=== PATIENT | male | born 2000 | race Caucasian/White ===

== ENCOUNTER 2022-02-08 07:55 | Emergency (ER) | payer MEDICAID, SELFPAY ==
[2022-02-08 08:19] VITALS: BP 147/84; PULSE 79; RESP 17; TEMP 36.9; O2SAT 99
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
[2022-02-08 09:11] VITALS: BP 153/75; PULSE 76; RESP 18; TEMP 36.8; O2SAT 100; BMI 35.6
[2022-02-08 09:49] LABS: MANUAL DIFF FLAG NO
[2022-02-08 10:05] LABS: Basophils Percent Auto 0.2 % (0-2); Eosinophils Percent Auto 0.3 % (0-4); Hemoglobin 15.1 g/dl (14.0-18.0); Imm Gran Abs Auto 0.03 X10*3/uL (0.00-0.03); Imm Gran Pct Auto 0.3 % (0.0-0.4); Lymphocytes Absolute Auto 1.8 X10*3/uL (1.2-4.9); Lymphocytes Percent Auto 18.2 % (20-40); Mean Corpuscular HGB Conc 32.8 g/dl (31.0-36.0); Mean Corpuscular Volume 88.3 fL (80.0-98.0); Mean Platelet Volume 9.5 fL (9.4-12.4); Monocytes Absolute Auto 0.7 X10*3/uL (0.1-1.2); Monocytes Percent Auto 7.2 % (2-11); Neutrophils Absolute Auto 7.2 x10*3/uL (2.0-8.3); Neutrophils Percent Auto 73.8 % (45-73); Platelet Count 318 X10*3/uL (160-400); Red Blood Count 5.21 X10*6/uL (4.60-5.80); Red Cell Distribution Width 11.9 % (11.0-16.0); White Blood Count 9.8 X10*3/uL (4.8-10.8)
[2022-02-08] MEDS: Ondansetron ODT 4 MG TAB.RAPDIS TRANSLINGU (10:18)
[2022-02-08] MEDS: Cyclobenzaprine HCl 10 MG TABLET PO (10:19)
[2022-02-08] MEDS: Ketorolac Tromethamine 15 MG/ML VIAL IM (10:19)
[2022-02-08 10:20] LABS: Alanine Aminotransferase 24 U/L (0-40); Albumin Level 4.6 g/dL (3.5-5.0); Alkaline Phosphatase 49 U/L (39-117); Anion Gap 14 (12-20); Aspartate Amino Transferase 19 U/L (5-37); Bilirubin Total 0.7 mg/dL (0.0-1.0); Blood Urea Nitrogen 10 mg/dL (9-16); Calcium 9.9 mg/dL (8.4-10.2); Carbon Dioxide 26 mmol/L (22-29); Chloride 103 mmol/L (96-108); Creatinine Clr Calc Pharmacy 155.1; Estimated Glomerular Filt Rate > 60; Glucose Random 107 mg/dL (60-115); Potassium 4.6 mmol/L (3.3-5.1); Sodium 138 mmol/L (135-145); Total Protein 7.1 g/dL (6.5-8.0)
== END 2022-02-08 10:52 | disposition home or self-care (01) ==
PROVIDERS: Physician Assistant Medical; Emergency Provider Emergency Medicine
DX: S06.0X9A Concussion with loss of consciousness of unspecified duration, initial encounter (principal); S13.4XXA Sprain of ligaments of cervical spine, initial encounter; V47.5XXA Car driver injured in collision with fixed or stationary object in traffic accident, initial encounter; Y93.9 Activity, unspecified; Y92.410 Unspecified street and highway as the place of occurrence of the external cause; Y99.9 Unspecified external cause status
CPT/HCPCS: 36415; 80053; 83735; 85025; 96372; 99283; 99284; J1885

== ENCOUNTER 2022-03-11 22:20 | Emergency (ER) | payer MEDICAID, SELFPAY ==
[2022-03-11 22:34] VITALS: BP 103/79; PULSE 104; RESP 18; TEMP 37; O2SAT 97; BMI 34.1
[2022-03-11 22:50] LABS: MANUAL DIFF FLAG NO
[2022-03-11 22:52] LABS: Basophils Percent Auto 0.4 % (0-2); Eosinophils Percent Auto 0.4 % (0-4); Hematocrit 44.6 % (42.0-52.0); Hemoglobin 14.7 g/dl (14.0-18.0); Imm Gran Abs Auto 0.04 X10*3/uL (0.00-0.03); Imm Gran Pct Auto 0.4 % (0.0-0.4); Lymphocytes Absolute Auto 1.6 X10*3/uL (1.2-4.9); Lymphocytes Percent Auto 16.2 % (20-40); Mean Corpuscular Hemoglobin 28.2 pg (27.0-33.0); Mean Corpuscular Volume 85.6 fL (80.0-98.0); Mean Platelet Volume 9.3 fL (9.4-12.4); Monocytes Absolute Auto 1.1 X10*3/uL (0.1-1.2); Monocytes Percent Auto 11.6 % (2-11); Platelet Count 311 X10*3/uL (160-400); Red Blood Count 5.21 X10*6/uL (4.60-5.80); Red Cell Distribution Width 12.1 % (11.0-16.0); White Blood Count 9.8 X10*3/uL (4.8-10.8)
[2022-03-11 23:02] LABS: Strep A Nucleic Acid Negative (Negative)
[2022-03-11 23:11] LABS: Alanine Aminotransferase 32 U/L (0-40); Albumin Level 4.5 g/dL (3.5-5.0); Alkaline Phosphatase 56 U/L (39-117); Anion Gap 13 (12-20); Aspartate Amino Transferase 24 U/L (5-37); Bilirubin Total 0.6 mg/dL (0.0-1.0); Blood Urea Nitrogen 9 mg/dL (9-16); Calcium 9.4 mg/dL (8.4-10.2); Carbon Dioxide 27 mmol/L (22-29); Chloride 103 mmol/L (96-108); Creatinine Clr Calc Pharmacy 136.8; Estimated Glomerular Filt Rate > 60; Glucose Random 109 mg/dL (60-115); Potassium 3.6 mmol/L (3.3-5.1); Sodium 139 mmol/L (135-145); Total Protein 6.8 g/dL (6.5-8.0)
[2022-03-11 23:23] LABS: COVID-19 Test Negative (Negative); IDNOW Serial# 55D5AD1C; Influenza A Negative (Negative); Influenza B2 Negative (Negative)
--- NOTE | 2022-03-11 23:45 | ED_ITS ---
HPI - General Adult General Chief complaint: General Medical Stated complaint: Allergic Reaction Time Seen by Provider: 03/11/22 22:55 Source: patient Mode of arrival: ambulatory Limitations: no limitations History of Present Illness HPI narrative: 21-year-old male with Crohn's disease recently started on Humira and took 1 dose presenting to the ED with complaints of sleeping all day and having hot flashes after he took the Humira. He reports he also had a mass removed from his right posterior buttocks which is not hurting him although he reported he wanted me just to know. He also reported that he has also had a sore throat for the past few days worse today and he was recently around his friends who tested positive for COVID approximately 3-4 days ago. He denies any measured fevers, dizziness, headaches, neck pain/stiffness, trouble swallowing or breathing, chest pain or shortness of breath, nausea/vomiting, paresthesias, palpitations, abdominal pain, diarrhea, constipation, black or bloody stools, hematuria, dysuria, recent travel, cough, trouble swallowing, rashes or any other symptoms complaints or concerns at this time. MD complaint: Sore throat and possible adverse reaction to Humira Related Data Previous Rx's Medication Instructions Recorded cyclobenzaprine 10 mg tablet 10 mg PO TID PRN muscle spasm 7 02/08/22 days #21 tabs ondansetron 4 mg disintegrating 4 mg PO Q8H 3 days #9 tabs 02/08/22 tablet amoxicillin 875 mg-potassium 1 tab PO BID 10 days #20 tabs 03/11/22 clavulanate 125 mg tablet Allergies Allergy/AdvReac Type Severity Reaction Status Date / Time Sulfa (Sulfonamide Allergy Unknown Verified 02/08/22 09:16 Antibiotics) tree nut Allergy Hives Verified 03/11/22 22:34 Review of Systems Review of Systems: Constitutional : + feeling tired all day and hot flashes, No Weight loss, No Fever, No Chills, No Night Sweats ENT/Mouth : + sore throat, No Hearing loss, No Ear Pain, No Nasal Congestion, No Sinus Pain, No Hoarseness, No Rhinorrhea, No Swallowing Difficulty Eyes: No Eye Pain, No Swelling, No Redness, No Foreign Body, No Discharge, No Vision Changes Cardiovascular : No Chest Pain, No SOB, No Dyspnea on Exertion, No Orthopnea, No Edema, No Palpitations Respiratory : No Cough, No Sputum, No Wheezing, No Smoke Exposure, No Dyspnea Gastrointestinal : No Nausea, No Vomiting, No Diarrhea, No Constipation, No abdominal Pain, No Hematochezia, No Melena Genitourinary : no irregular bleeding, No Dysuria, No Urinary Frequency, No Hem aturia, No Urinary Incontinence, No Urgency, No Flank Pain, No Urinary Flow Changes, No Hesitancy Musculoskeletal : No joint pain, No Myalgias, No Joint Swelling Skin : No Skin Lesions, No rash Neuro : No Weakness, No Numbness, No Paresthesias, No Loss of Consciousness, No Dizziness, No Headache Psych : No Anxiety/Panic, No Depression, No SI/HI/AH/VH, No Social Issues, Heme/Lymph: No Bruising, No Bleeding,No Lymphadenopathy Endocrine : No Polyuria, No Polydipsia, No Temperature Intolerance Yes all other systems are reviewed and are negative [facility] Past Medical History Attestation statement: The following information was validated with the patient. Source: old records reviewed and nursing notes reviewed Social History Social History Advance Directives: No Physical Exam ED Vital Signs: Vital Signs - 24 hr 03/11/22 22:34 Temperature 98.6 F Pulse Rate 104 H Respiratory Rate 18 Blood Pressure 103/79 Pulse Oximetry 97 Oxygen Delivery Method Room Air BMI result Body Mass Index 34.1 vital signs have been reviewed as normal and appeared to be correct. Blood pr essure normal. Heart rate 104. Respiration rate normal. Temperature normal. Oxygen saturation normal. Appearance: Alert. Oriented X3. No acute distress. Head: Normal external exam. Normocephalic. Atraumatic. Eyes: PERRLA. EOMI. Conjunctiva and sclera normal. Eyelids normal. ENT: EAC normal. TM's Normal. Posterior pharynx mildly erythematous with scattered exudate noted. Uvula midline. Soft and hard palate within normal limits. Moist mucous membranes. No lesions/ulcerations or masses noted on the tongue. Normal voice. No trismus noted. No drooling noted. No muffled voice noted. Neck: Normal inspection. Neck supple. FROM. No adenopathy. Thyroid Normal. No tracheal deviation noted. No crepitus is noted. No meningeal signs. No neck mass noted. No signs of trauma noted. CVS: Normal heart rate and rhythm. Heart sound normal. Pulses normal throughout. No murmurs/rales/gallops. Respiratory: No respiratory distress. Painless inspiration. Breath sounds normal. No wheezes/rales/rhonchi noted. Chest nontender. No crepitus is noted. No signs of trauma noted. No accessory muscle usage noted or decreased air movement noted. Abdomen: Soft and nontender. Bowel sounds normal in all 4 quadrants. No distention noted. No organomegaly noted. No visible injury noted. Back: No CVA tenderness. Full range of motion noted. Nontender. No signs of trauma. Patient neuro intact bilaterally and distally on all 4 extremities. Patient's reflexes intact bilaterally and distally on all 4 extremities. No rashes/lesion/induration/fluctuance or signs of infection noted. Skin: Skin warm and dry. Normal skin color. Normal skin turgor. No rashes/lesions/lacerations noted. Extremities: Extremities exhibit normal range of motion and nontender. Neuro: Oriented X 3. No motor deficit. No sensory deficit. Reflexes normal. Normal steady gait. No focal neuro deficits noted. CN's II-XII intact bilaterally? Vascular: + radial pulses/+ 2 distal pedal pulses/+2 dorsalis pedis b/l. Normal cap refill. No cyanosis noted to upper extremity nails and lower extremity toes nails. Course Course Course Narrative: 21-year-old male with Crohn's disease recently started on Humira and took 1 dose presenting to the ED with complaints of sleeping all day and having hot flashes after he took the Humira. He reports he also had a mass removed from his right posterior buttocks which is not hurting him although he reported he wanted me just to know. He also reported that he has also had a sore throat for the past few days worse today and he was recently around his friends who tested positive for COVID approximately 3-4 days ago. Patient had labs while he was in the waiting room and all labs are within normal limits. Patient negative for COVID and influenza and strep although on my exam it appears that he has bacterial pharyngitis therefore will treat. Otherwise he might be having an adverse reaction to the Humira although explained to him that Humira works really well with Crohn's disease and he I would talk to the filer and sander before discontinuing this. Therefore patient understands agrees with this plan along with instructions return if any new or worsening symptoms. Medical Decision Making Medical Records Medical records reviewed: Yes I reviewed the patient's medical records. Lab Data Lab results reviewed: Yes I reviewed the patient's lab results. Result diagrams: 03/11/22 22:41 03/11/22 22:41 Labs: Lab Results 03/11/22 03/11/22 03/11/22 Range/Units 22:41 22:41 22:41 WBC 9.8 (4.8-10.8) X10*3/uL RBC 5.21 (4.60-5.80) X10*6/uL Hgb 14.7 (14.0-18.0) g/dl Hct 44.6 (42.0-52.0) % MCV 85.6 (80.0-98.0) fL MCH 28.2 (27.0-33.0) pg MCHC 33.0 (31.0-36.0) g/dl RDW 12.1 (11.0-16.0) % Plt Count 311 (160-400) X10*3/uL MPV 9.3 L (9.4-12.4) fL Immature Gran % (Auto) 0.4 (0.0-0.4) % Neut % (Auto) 71.0 (45-73) % Lymph % (Auto) 16.2 L (20-40) % [place] % (Auto) 11.6 H (2-11) % Eos % (Auto) 0.4 (0-4) % Baso % (Auto) 0.4 (0-2) % Lymph # (Auto) 1.6 (1.2-4.9) X10*3/uL [place] # (Auto) 1.1 (0.1-1.2) X10*3/uL Eos # (Auto) 0.0 (0.0-0.4) X10*3/uL Baso # (Auto) 0.0 (0.0-0.2) X10*3/uL Abs Immat Gran (auto) 0.04 H (0.00-0.03) X10*3/uL Absolute Neuts (auto) 7.0 (2.0-8.3) x10*3/uL Absolute Nucleated RBC 0.000 (0.0-0.012) X10*3/uL Nucleated RBC % (auto) 0.0 (0.0-0.2) /100WBC Sodium 139 (135-145) mmol/L Potassium 3.6 D (3.3-5.1) mmol/L Chloride 103 (96-108) mmol/L Carbon Dioxide 27 (22-29) mmol/L Anion Gap 13 (12-20) BUN 9 (9-16) mg/dL Creatinine 0.91 (0.5-1.4) mg/dL Estim Creat Clear Calc 136.8 Estimated GFR > 60 Random Glucose 109 (60-115) mg/dL Calcium 9.4 (8.4-10.2) mg/dL Total Bilirubin 0.6 (0.0-1.0) mg/dL AST 24 (5-37) U/L ALT 32 (0-40) U/L Alkaline Phosphatase 56 (39-117) U/L Total Protein 6.8 (6.5-8.0) g/dL Albumin 4.5 (3.5-5.0) g/dL COVID-19 (ANA) (Negative) COVID-19 Clin Com Influenza Type A (KAREN) Negative (Negative) Influenza Type B (KAREN) Negative (Negative) Influenza A & B Note See Note S. pyogenes GrpA KAREN (Negative) 03/11/22 03/11/22 Range/Units 22:41 22:43 WBC (4.8-10.8) X10*3/uL RBC (4.60-5.80) X10*6/uL Hgb (14.0-18.0) g/dl Hct (42.0-52.0) % MCV (80.0-98.0) fL MCH (27.0-33.0) pg MCHC (31.0-36.0) g/dl RDW (11.0-16.0) % Plt Count (160-400) X10*3/uL MPV (9.4-12.4) fL Immature Gran % (Auto) (0.0-0.4) % Neut % (Auto) (45-73) % Lymph % (Auto) (20-40) % [place] % (Auto) (2-11) % Eos % (Auto) (0-4) % Baso % (Auto) (0-2) % Lymph # (Auto) (1.2-4.9) X10*3/uL [place] # (Auto) (0.1-1.2) X10*3/uL Eos # (Auto) (0.0-0.4) X10*3/uL Baso # (Auto) (0.0-0.2) X10*3/uL Abs Immat Gran (auto) (0.00-0.03) X10*3/uL Absolute Neuts (auto) (2.0-8.3) x10*3/uL Absolute Nucleated RBC (0.0-0.012) X10*3/uL Nucleated RBC % (auto) (0.0-0.2) /100WBC Sodium (135-145) mmol/L Potassium (3.3-5.1) mmol/L Chloride (96-108) mmol/L Carbon Dioxide (22-29) mmol/L Anion Gap (12-20) BUN (9-16) mg/dL Creatinine (0.5-1.4) mg/dL Estim Creat Clear Calc Estimated GFR Random Glucose (60-115) mg/dL Calcium (8.4-10.2) mg/dL Total Bilirubin (0.0-1.0) mg/dL AST (5-37) U/L ALT (0-40) U/L Alkaline Phosphatase (39-117) U/L Total Protein (6.5-8.0) g/dL Albumin (3.5-5.0) g/dL COVID-19 (ANA) Negative (Negative) COVID-19 Clin Com See Note Influenza Type A (KAREN) (Negative) Influenza Type B (KAREN) (Negative) Influenza A & B Note S. pyogenes GrpA KAREN Negative (Negative) Discharge Plan Discharge Clinical Impression: Adverse effects of medication, Acute bacterial pharyngitis Patient Disposition: Home, Self-Care Instructions: Pharyngitis (ED) Prescriptions: New amoxicillin-pot clavulanate 875-125 mg tablet 1 tab PO BID 10 Days Qty: 20 0RF No Action cyclobenzaprine 10 mg tablet 10 mg PO TID PRN (Reason: muscle spasm) 7 Days Qty: 21 0RF ondansetron 4 mg tablet,disintegrating 4 mg PO Q8H 3 Days Qty: 9 0RF Referrals: Kelly Bradley MD [Primary Care Provider] - 2 days
== END 2022-03-12 00:13 | disposition home or self-care (01) ==
PROVIDERS: Emergency Provider Internal Medicine; PCP Family Medicine
DX: G47.19 Other hypersomnia (principal); R23.2 Flushing; T39.4X5A Adverse effect of antirheumatics, not elsewhere classified, initial encounter; Y92.039 Unspecified place in apartment as the place of occurrence of the external cause; J02.8 Acute pharyngitis due to other specified organisms; Z20.822 Contact with and (suspected) exposure to COVID-19
CPT/HCPCS: 36415; 80053; 85025; 87502; 87635; 87651; 99282; 99283

== ENCOUNTER 2023-08-19 23:36 | Inpatient (IN) | payer OTHER, SELFPAY ==
--- OUTSIDE RECORDS SUMMARY | 2023-08-19 23:40 | XMS_ITS | Continuity of Care Document ---
Author Name Unknown Organization [facility] Address [address] [place] [address]- Care Team Providers Care Pinking Machine Operator Name Role Phone Not on Staff, PCP Primary Care Physician Unavail able [place] [facility] [place] Date(s): 10/24/20 - 11/05/20 [facility] [address] [place] [address]- Discharge Disposition: A-D/C Home Attending Physician: Katy Mendez MD Admitting Physician: Katy Mendez MD Referring Physician: Not on Staff, Referring MD Allergies, Adverse Reactions, Alerts Substance Reaction Severity Status sulfa drugs Active Nuts Active Lactose Active Immunizations Not Given Vaccine Date Status Refusal Reason pneumococcal 23-valent vaccine 10/25/20 Not Given Patient Refuses Medications Benadryl 25 mg oral capsule 1 capsule = 25 mg, By Mouth, Daily at bedtime, PRN Anxiety, 0 Refills, Maintenance, 10/25/20 1:49:00 EST, Partial fill upon patient request if the prescription is for a schedule II opioid drug. Start Date: 10/25/20 Status: Ordered budesonide 3 mg oral delayed release capsule 1 capsule = 3 mg, By Mouth, Daily in AM, # 180 capsule, 0 Refills, Maintenance, 10/25/20 0:23:00 EST, CR Capsule, Partial fill upon patient request if the prescription is for a schedule II opioid drug. Start Date: 10/25/20 Status: Ordered dicyclomine 10 mg oral capsule 2 capsule = 20 mg, By Mouth, 3 times a day, PRN Irritable Bowel Symptoms, 0 Refills, Maintenance, 10/25/20 1:44:00 EST, Partial fill upon patient request if the prescription is for a schedule II opioid drug. Start Date: 10/25/20 Status: Ordered Docusate = 100 mg, By Mouth, 2 times a day, 0 Refills, Maintenance, 10/25/20 1:39:00 EST, Partial fill upon patient request if the prescription is for a schedule II opioid drug. Start Date: 10/25/20 Status: Ordered famotidine 20 mg oral tablet 20 mg, 1, tablet, By Mouth, Daily, Refills 0, Maintenance, 10/25/20 1:43:00 EST, Partial fill upon patient request if the prescription is for a schedule II opioid drug. Start Date: 10/25/20 Status: Ordered gabapentin 250 mg/5 mL oral solution 6 mL = 300 mg, By Mouth, 3 times a day, # 540 mL, 0 Refills, Maintenance, 10/25/20 1:41:00 EST, Solution, Partial fill upon patient request if the prescription is for a schedule II opioid drug. Start Date: 10/25/20 Status: Ordered Gabapentin 50 mg/ml Liquid 300 mg, Liquid, By Mouth, 11/05/20 9:00:00 EST Start Date: 11/05/20 Stop Date: 11/05/20 Status: Completed hyoscyamine 0.125 mg oral tablet, disintegrating 1 tablet = 0.125 mg, Sublingual, 3 times a day, PRN Irritable Bowel Symptoms, 0 Refills, Maintenance, 10/25/20 1:46:00 EST, Partial fill upon patient request if the prescription is for a schedule II opioid drug. Start Date: 10/25/20 Status: Ordered loratadine 5 mg oral tablet, disintegrating 1 tablet = 5 mg, By Mouth, Daily, 0 Refills, Maintenance, 10/25/20 1:38:00 EST, Partial fill upon patient request if the prescription is for a schedule II opioid drug. Start Date: 10/25/20 Status: Ordered LORazepam 2 mg oral tablet 1 tablet = 2 mg, By Mouth, Daily at bedtime, # 30 tablet, 1 Refills, Maintenance, 11/05/20 10:11:00EST, [facility]/pharmacy #[id number], Partial fill upon patient request if the prescription is for a schedule IIopioid drug., 162, cm, 11/05/20 8:42:00 EST, Height... Start Date: 11/05/20 Status: Ordered Melatonin = 6 mg, By Mouth, Daily at bedtime, 0 Refills, Maintenance, 10/25/20 1:27:00 EST, Partial fill uponpatient request if the prescription is for a schedule II opioid drug. Start Date: 10/25/20 Status: Ordered Protonix 40 mg oral delayed release tablet 1 tablet = 40 mg, By Mouth, Daily before breakfast, 0 Refills, Maintenance, 10/25/20 1:22:00 EST Start Date: 10/25/20 Status: Ordered Vistaril Capsule = 50 mg, By Mouth, 2 times a day, PRN as needed for anxiety, 0 Refills, Maintenance, 10/25/20 1:47:00 EST, Partial fill upon patient request if the prescription is for a schedule II opioid drug. Start Date: 10/25/20 Status: Ordered Zofran 4 mg oral tablet 1 tablet = 4 mg, By Mouth, 3 times a day, PRN Nausea & Vomiting, 0 Refills, Maintenance, 10/25/20 1:49:00 EST, Partial fill upon patient request if the prescription is for a schedule II opioid drug. Start Date: 10/25/20 Status: Ordered ZyPREXA 10 mg oral tablet 10 mg, 1, tablet, By Mouth, Daily, # 30 tablet, Refills 0, Tot. Refills 0, Maintenance, 11/05/20 10:10:00 EST, Route to Pharmacy Electronically, [facility]/pharmacy #[id number], Partial fill upon patient request if the prescription is for a schedule II opioid drug... Start Date: 11/05/20 Status: Ordered ZyPREXA 15 mg oral tablet 1 tablet = 15 mg, By Mouth, Daily at bedtime, # 30 tablet, 0 Refills, Maintenance, 11/05/20 10:02:00 EST, Tablet, [facility]/pharmacy #[id number], Partial fill upon patient request if the prescription is for a schedule II opioid drug., 162, cm, 11/05/20 8:42:00 ES... Start Date: 11/05/20 Status: Ordered Vital Signs Most recent to oldest [Reference Range]: 1 2 3 4 Height 162 cm (11/05/20 8:42 AM) 162 cm (11/04/20 9:05 PM) 162 cm (11/04/20 9:10 AM) Weight 76.2 kg (10/31/20 11:09 AM) 77.5 kg (10/24/20 7:04 PM) Oxygen Saturation [94-100 %] 98 % (2/23/21 8:42 AM) 100 % (11/04/20 9:05 PM) 98 % (11/04/20 9:10 AM) Pulse Rate [55-90 bpm] 95 bpm *H* (11/05/20 8:42 AM) 71 bpm (11/04/20 9:05 PM) 95 bpm *H* (11/04/20 9:10 AM) Body Mass Index [18.5-24.99] 29.53 *H* (10/24/20 7:04 PM) Blood Pressure [71-110/30-71 mm Hg] 129/84mm Hg *H* (11/05/20 8:42 AM) 126/83mm Hg *H* (11/04/20 9:05 PM) 128/99mm Hg *H* (11/04/20 9:10 AM) Respiratory Rate [16-30 br/min] 16 br/min (11/05/20 10:14 AM) 16 br/min (11/05/20 8:47 AM) 16 br/min (11/04/20 9:05 PM) 16 br/min (11/04/20 9:05 PM) Temperature [96.8-100.4 DegF] 97.5 DegF (11/05/20 8:42 AM) 97.3 DegF (11/04/20 9:05 PM) 97.8 DegF (11/04/20 9:10 AM) Mode of Delivery (Oxygen) Room air (11/05/20 8:42 AM) Room air (11/04/20 9:05 PM) Room air (11/04/20 9:10 AM) Blood pressure sites Arm, left (11/05/20 8:42 AM) Arm, left (11/04/20 9:05 PM) Arm, left (11/04/20 9:10 AM) Temperature Route Temporal (11/05/20 8:42 AM) Temporal (11/04/20 9:05 PM) Tympanic (11/04/20 9:10 AM) Dry Weight 77.5 kg (10/24/20 7:04 PM) Weight Obtained Via Standing scale (10/31/20 11:09 AM) Standing scale (10/24/20 7:04 PM) Dry Weight Obtained Via Standing scale (10/24/20 7:04 PM) Sensory deficits Other: Wears glasses and does not have them with him (10/24/20 7:04 PM) Social History Social History Type Response Smoking Status 5-9 cigarettes (betw eedominick 1/4 to 1/2 pack)/day in last 30 days entered on: 10/24/20 Sex
--- OUTSIDE RECORDS SUMMARY | 2023-08-19 23:41 | XMS_ITS | Continuity of Care Document ---
Author Name Unknown Organization [facility] In[facility] Address [address] [place] [address]- Care Team Providers Care Clinical Pathologist Name Role Phone Kelly Bradley MD Primary Care Physician Encounter [facility] [place] Date(s): 08/14/21 - 08/20/21 [facility] Inpatient [facility] [address] [place] [address]- Discharge Disposition: A-D/C Home Attending Physician: Mumtaz Sanchez MD Admitting Physician: Mumtaz Sanchez MD Referring Physician: Not on Staff, Referring [...] opioid drug. Start Date: 10/25/20 Status: Ordered Focalin XR 25 mg oral capsule, extended release 1 capsule = 25 mg, By Mouth, Daily in AM, 0 Refills, Maintenance, 08/14/21 11:10:00 EST, ER Capsule, Partial fill upon patient request if the prescription is for a schedule II opioid drug. Start Date: 08/14/21 Status: Ordered gabapentin 300 mg oral capsule 300 mg, Capsule, By Mouth, 08/20/21 9:00:00 EST Start Date: 08/20/21 Stop Date: 08/20/21 Status: Completed gabapentin 300 mg oral capsule 300 mg, 1, capsule, By Mouth, 3 times a day, Refills 0, Maintenance, 08/20/21 9:09:00 EST, Partial fill upon patient request if the prescription is for a schedule II opioid drug. Start Date: 08/20/21 Status: Ordered hyoscyamine 0.125 mg oral tablet, disintegrating 1 [...] opioid drug. Start Date: 10/25/20 Status: Ordered melatonin 3 mg oral tablet 3 tablet = 9 mg, By Mouth, Daily at bedtime, PRN for insomnia, # 60 tablet, 0 Refills, Maintenance,08/14/21 11:11:00 EST, Tablet, Partial fill upon patient request if the prescription is for a schedule II opioid drug. Start Date: 08/14/21 Status: Ordered omeprazole 40 mg oral enteric coated capsule 1 capsule = 40 mg, By Mouth, Daily, # 30 capsule, 0 Refills, Maintenance, 08/13/21 4:44:00 EST, EC Capsule, [facility]/pharmacy #[id number], Partial fill upon patient request if the prescription is for a scheduleII opioid drug., 160, cm, 08/13/21 3:08:00 EST, Hei... Start Date: 08/13/21 Status: Ordered pantoprazole 40 mg oral delayed release tablet 1 tablet = 40 mg, By Mouth, 2 times a day, # 60 tablet, 0 Refills, Maintenance, 08/14/21 11:14:00 EST, CR Tablet Start Date: 08/14/21 Status: Ordered Proctofoam HC 1%-1% foam 1 application, Rectally, 3 times a day, PRN pain, # 10 Gm, 0 Refills, Maintenance, 08/03/21 0:55:00EST, Foam, [facility]/pharmacy #[id number], Partial fill upon patient request if the prescription is for a schedule II opioid drug., 1 application Rectally 3 times... Start Date: 08/03/21 Status: Ordered sertraline 50 mg oral tablet 1 tablet = 50 mg, By Mouth, Daily, # 7 tablet, 0 Refills, Maintenance, 08/20/21 9:14:00 EST, Tablet, [facility]/pharmacy #[id number], Partial fill upon patient request if the prescription is for a schedule II opioid drug., 170, cm, 08/19/21 22:08:00 EST, Height, 1... Start Date: 08/20/21 Status: Ordered Vistaril Capsule = 50 mg, By Mouth, 2 times a day, PRN as needed for anxiety, 0 Refills, Maintenance, 10/25/20 1:47:00 EST, Partial fill upon patient request if the prescription is for a schedule II opioid drug. Start Date: 10/25/20 Status: Ordered Vitamin D3 50,000 intl units oral capsule 1 capsule = 1,250 mcg, By Mouth, Every week, # 12 capsule, 0 Refills, Maintenance, 08/14/21 11:12:00 EST, Capsule, Partial fill upon patient request if the prescription is for a schedule II opioid drug. Start Date: 08/14/21 Status: Ordered Zofran 4 mg oral tablet 1 tablet = 4 mg, By Mouth, 4 times a day, PRN Nausea & Vomiting, 0 Refills, Maintenance, 10/25/20 1:49:00 EST, Partial fill upon patient request if the prescription is for a schedule II opioid drug. Start Date: 10/25/20 Status: Ordered ZyPREXA 10 mg oral tablet 10 mg, 1, tablet, By Mouth, Daily, # 7 tablet, Refills 0, Tot. Refills 0, Maintenance, 08/20/21 9:11:00 EST, Route to Pharmacy Electronically, [facility]/pharmacy #[id number], Partial fill upon patient request ifthe prescription is for a schedule II opioid drug.,... Start Date: 08/20/21 Status: Ordered Vital Signs Most recent to oldest [Reference Range]: 1 2 3 Height 170 cm (08/20/21 10:51 AM) 170 cm (08/19/21 10:08 PM) 170 cm (08/18/21 6:11 PM) Weight 103.3 kg (08/14/21 10:23 AM) 82 kg (08/13/21 2:23 PM) Oxygen Saturation [94-100 %] 99 % (08/20/21 10:51 AM) 99 % (08/19/21 10:08 PM) 97 % (08/18/21 6:11 PM) Pulse Rate [55-90 bpm] 82 bpm (08/20/21 10:51 AM) 84 bpm (08/19/21 10:08 PM) 74 bpm (08/18/21 6:11 PM) Body Mass Index [18.5-24.99] 35.74 *>HHI* (08/14/21 10:23 AM) Blood Pressure [90-138/55-84 mm Hg] 106/85mm Hg (08/20/21 10:51 AM) 96/63mm Hg (08/19/21 10:08 PM) 112/83mm Hg (08/18/21 6:11 PM) Respiratory Rate [16-30 br/min] 16 br/min (08/20/21 10:51 AM) 16 br/min (08/20/21 10:43 AM) 16 br/min (08/20/21 8:30 AM) Temperature [96.8-100.4 DegF] 97.1 DegF (08/20/21 10:51 AM) 97.5 DegF (08/19/21 10:08 PM) 97.5 DegF (08/18/21 6:11 PM) Mode of Delivery (Oxygen) Room air (08/20/21 10:51 AM) Room air (08/18/21 6:11 PM) Room air (08/18/21 8:19 AM) Blood pressure sites Arm, right (08/19/21 10:08 PM) Arm, right (08/18/21 6:11 PM) Arm, left (08/18/21 8:19 AM) Temperature Route Temporal (08/19/21 10:08 PM) Temporal (08/18/21 6:11 PM) Temporal (08/18/21 8:19 AM) Dry Weight 103.3 kg (08/14/21 10:23 AM) 82 kg (08/13/21 2:23 PM) Social History Social History Type Response Smoking Status Former smoker, quit more than 30 days ago;Never; Type: Cigarettes entered on: 08/14/21 Sex
--- OUTSIDE RECORDS SUMMARY | 2023-08-19 23:41 | XMS_ITS | Continuity of Care Document ---
Author Name Unknown Organization [facility] Address [address] [place] [address]- Care Team Providers Care Owner Oral Surgeon Name Role Phone Kelly Bradley MD Primary Care Physician Encounter [facility] [place] Date(s): 08/20/21 - 09/20/[address] [address]- Attending Physician: Vernon Walker MD Referring Physician: Not on Staff, Referring [...] Refills, Maintenance, 08/13/21 4:44:00 EST, EC Capsule, [facility]/pharmacy #[id number], Partial fill upon patient request [...] Gm, 0 Refills, Maintenance, 08/03/21 0:55:00EST, Foam, [facility]/pharmacy #[id number], Partial fill upon patient request if the prescription is for a schedule II opioid drug., 1 application Rectally 3 times... Start Date: 08/03/21 Status: Ordered sertraline 50 mg oral tablet 1 tablet = 50 mg, By Mouth, Daily, # 7 tablet, 0 Refills, Maintenance, 08/20/21 9:14:00 EST, Tablet, [facility]/pharmacy #[id number], Partial fill upon patient request [...] 08/20/21 9:11:00 EST, Route to Pharmacy Electronically, [facility]/pharmacy #[id number], Partial fill upon patient request ifthe prescription is for a schedule II opioid drug.,... Start Date: 08/20/21 Status: Ordered Social History Social History Type Response Smoking Status Former smoker, quit more than 30 days ago;Never; Type: Cigarettes entered on: 08/14/21 Sex
--- OUTSIDE RECORDS SUMMARY | 2023-08-19 23:41 | XMS_ITS | Continuity of Care Document ---
Author Name Unknown Organization [facility] Address [address] [place] [address]- Care Team Providers Care Respiratory Support Technician Name Role Phone Not on Staff, PCP Primary Care Physician Unavail able Encounter [facility] [place] Date(s): 05/03/20 - 06/02/20 [facility] [address] [place] [address]- [facility] Attending Physician: Roderick Laws Admitting Physician: Roderick Laws Referring Physician: AdmtrRoderick Allergies, Adverse Reactions, Alerts Substance Reaction Severity Status sulfa drugs Active Nuts Active Medications Dexmethylphenidate By Mouth, 0 Refills, Maintenance, 05/03/20 12:50:00 EDT Start Date: 05/03/20 Status: Ordered Escitalopram By Mouth, Daily, 0 Refills, Maintenance, 05/03/20 12:50:00 EDT Start Date: 05/03/20 Status: Ordered
--- OUTSIDE RECORDS SUMMARY | 2023-08-19 23:41 | XMS_ITS | Continuity of Care Document ---
Author Name Unknown Organization [facility] Address [address] [place] [address]- Care Team Providers Care Certified Anesthesiologist Assistant Name Role Phone Kelly Bradley MD Primary Care Physician ( [phone] Encounter [facility] [place] Date(s): 11/14/21 - 11/14/[address] [address]- Encounter Diagnosis Insect bite(Final) - 11/14/21 Discharge Disposition: A-D/C Home Attending Physician: Roberto Salas DO Admitting Physician: Roberto Salas DO Referring Physician: Not on Staff, Referring MD [...] Refills, Maintenance, 08/13/21 4:44:00 EST, EC Capsule, [facility]/pharmacy #[id number], Partial fill upon patient request if [...] Gm, 0 Refills, Maintenance, 08/03/21 0:55:00EST, Foam, [facility] #[id number], Partial fill upon patient request if the prescription is for a schedule II opioid drug., 1 application Rectally 3 times... Start Date: 08/03/21 Status: Ordered sertraline 50 mg oral tablet 1 tablet = 50 mg, By Mouth, Daily, # 7 tablet, 0 Refills, Maintenance, 08/20/21 9:14:00 EST, Tablet, [id number], Partial fill upon patient request if [...] 08/20/21 9:11:00 EST, Route to Pharmacy Electronically, [facility]/pharmacy #[id number], Partial fill upon patient request ifthe prescription is for a schedule II opioid drug.,... Start Date: 08/20/21 Status: Ordered Vital Signs Most recent to oldest [Reference Range]: 1 Height 165 cm (11/14/21 3:53 AM) Weight 104 kg (11/14/21 3:53 AM) Oxygen Saturation [94-100 %] 95 % (11/14/21 3:53 AM) Pulse Rate [55-90 bpm] 95 bpm *H* (11/14/21 3:53 AM) Blood Pressure [90-138/55-84 mm Hg] 148/ 78mm Hg *H* (11/14/21 3:53 AM) Respiratory Rate [16-30 br/min] 16 br/mi n (11/14/21 3:53 AM) Temperature [96.8-100.4 DegF] 98.0 DegF (11/14/21 3:53 AM) Temperature Route Oral (11/14/21 3:53 AM) Dry Weight 104 kg (11/14/21 3:53 AM) Social History Social History Type Response Smoking Status Former smoker, quit more than 30 days ago;Never; Type: Cigarettes entered on: 08/14/21 Sex
--- OUTSIDE RECORDS SUMMARY | 2023-08-19 23:41 | XMS_ITS | Continuity of Care Document ---
Author Name Unknown Organization [facility] Address [address] [place] [address]- Care Team Providers Care Mining Helper Name Role Phone Kelly Bradley MD Primary Care Physician Encounter [facility] [place] Date(s): 09/11/21 - 09/11/[address] [address]- Encounter Diagnosis Acute bacterial conjunctivitis(Final) - 09/11/21 Discharge Disposition: A-D/C Home Attending Physician: Miky Tilley DO Admitting Physician: Miky Tilley DO Referring Physician: Not on Staff, Referring [...] opioid drug. Start Date: 10/25/20 Status: Ordered erythromycin 0.5% ophthalmic ointment 0.5 inches, Eyes, Both, 4 times a day, for 5 days, # 3.5 Gm, 0 Refills, Acute 09/16/21 11:08:00 EST, 09/11/21 11:08:00 EST, Ophth Ointment, [facility]/pharmacy #[id number], Partial fill upon patient request if the prescription is for a schedule II opioid drug., 0.... Start Date: 09/11/21 Stop Date: 09/16/21 Status: Ordered famotidine 20 mg oral tablet [...] 0 Refills, Maintenance, 08/03/21 0:55:00EST, Foam, [id number], Partial fill upon patient request if [...] 08/20/21 9:11:00 EST, Route to Pharmacy Electronically, [facility]/pharmacy #[id number], Partial fill upon patient request ifthe prescription is for a schedule II opioid drug.,... Start Date: 08/20/21 Status: Ordered Vital Signs Most recent to oldest [Reference Range]: 1 Height 165 cm (09/11/21 10:55 AM) Weight 114.6 kg (09/11/21 10:55 AM) Oxygen Saturation [94-100 %] 99 % (09/11/21 10:55 AM) Pulse Rate [55-90 bpm] 50 bpm *L* (09/11/21 10:55 AM) Blood Pressure [90-138/55-84 mm Hg] 113/ 70mm Hg (09/11/21 10:55 AM) Respiratory Rate [16-30 br/min] 16 br/mi n (09/11/21 10:55 AM) Temperature [96.8-100.4 DegF] 97.5 DegF (09/11/21 10:55 AM) Mode of Delivery (Oxygen) Room air (09/11/21 10:55 AM) Temperature Route Oral (09/11/21 10:55 AM) Dry Weight 114.6 kg (09/11/21 10:55 AM) Social History Social History Type Response Smoking Status Former smoker, quit more than 30 days ago;Never; Type: Cigarettes entered on: 08/14/21 Sex
--- OUTSIDE RECORDS SUMMARY | 2023-08-19 23:41 | XMS_ITS | Continuity of Care Document ---
Author Name Unknown Organization [facility] Address [address] [place] [id number]- Care Team Providers Care Telecommunications Field Engineer Name Role Phone Not on Staff, PCP Primary Care Physician Unavail able Encounter [facility] [place] Date(s): 09/22/20 - 09/23/[address] [address]- Discharge Disposition: A-D/C Walkout Attending Physician: Not on Staff, Attending MD Admitting Physician: Not on Staff, Admitting MD Referring Physician: Not on Staff, Referring MD Allergies, Adverse Reactions, Alerts Substance Reaction Severity Status sulfa drugs Active Nuts Active Medications Dexmethylphenidate By Mouth, 0 Refills, Maintenance, 05/03/20 12:50:00 EDT Start Date: 05/03/20 Status: Ordered Escitalopram By Mouth, Daily, 0 Refills, Maintenance, 05/03/20 12:50:00 EDT Start Date: 05/03/20 Status: Ordered Vital Signs Most recent to oldest [Reference Range]: 1 Oxygen Saturation [94-100 %] 99 % (09/22/20 11:55 PM) Pulse Rate [55-90 bpm] 64 bpm (09/22/20 11:55 PM) Blood Pressure [71-110/30-71 mm Hg] 144/ 65mm Hg *H* (09/22/20 11:55 PM) Respiratory Rate [16-30 br/min] 16 br/mi n (09/22/20 11:55 PM) Temperature [96.8-100.4 DegF] 97.3 DegF (09/22/20 11:55 PM) Mode of Delivery (Oxygen) Room air (09/22/20 11:55 PM) Blood pressure sites Arm, left (09/22/20 11:55 PM) Temperature Route Oral (09/22/20 11:55 PM)
--- OUTSIDE RECORDS SUMMARY | 2023-08-19 23:41 | XMS_ITS | Continuity of Care Document ---
Author Name Unknown Organization [facility] Address [address] [place] [id number]- Care Team Providers Care Patent Legal Assistant Name Role Phone Not on Staff, PCP Primary Care Physician Unavail able Encounter [facility] Date(s): 04/06/20 - 04/06/[address] [address]- [facility] Encounter Diagnosis Pain left index finger(Final) - 04/06/20 Discharge Disposition: A-D/C Home Attending Physician: Stephon Belcher MD Admitting Physician: Stephon Belcher MD Referring Physician: Not on Staff, Referring MD Allergies, Adverse Reactions, Alerts Substance Reaction Severity Status NKA Active Results Radiology Reports * Exam Date Time Procedure Performing Provider Status 04/06/20 8:30 PM Hand Min 3 Views Left Priscilla Romero; Renato (Verified) Notes: (Hand Min 3 Views Left) Reason For Exam: with Pain;Trauma RESULT: Hand Min 3 Views Left Hand Min 3 Views Left, 3 views Refer to EMR; Reason: Trauma; with Pain; Clinical Question(s): Fracture; Special Instructions: Thisis a protocol film and radiologist should call any findings to the Charge Nurse; Hx of Present Illness: pt reports left index finger swelling X5 weeks; states over the past 3-4 days has had an increase in pain and swelling; splint placed by patient for comfort; did not see doctor; no known injury; COMPARISON: None. TECHNIQUE: PA, oblique, lateral views. FINDINGS: Normal alignment. No linear fracture. There is a tiny 7 mm bony density at the ulnar aspect of the second PIP joint on the PA view only, nonspecific, but could reflect a tiny avulsion or chip injury.This is associated with mild soft tissue fullness of the proximal index finger. No soft tissue gas or radiopaque foreign matter. No arthritic changes. IMPRESSION: Soft tissue swelling of the index finger with nonspecific submillimeter ossific density at the ulnar aspect of the PIP joint, possibly a tiny avulsion fragment of uncertain acuity. WSN: [id number] Ordering Physician: Francis Storm Dictated By: Jair Mosley MD Dictated Date/Time: 04/06/20 8:56 pm Reviewed By: Jair Mosley MD Signed By: Jair Mosley MD Signed Date/Time: 04/06/20 8:56 pm Transcribed By: ONUR Transcribed Date/Time: 04/06/20 8:51 pm Vital Signs Most recent to oldest [Reference Range]: 1 2 Height 165 cm (04/06/20 10:31 PM) 165 cm (04/06/20 8:00 PM) Weight 85 kg (04/06/20: PM) 85 kg (04/06/20 8:00 PM) Oxygen Saturation [94-100 %] 98 % (04/06/20 10:31 PM) 97 % (04/06/20 8:00 PM) Pulse Rate [55-90 bpm] 60 bpm (04/06/20 10:31 PM) 52 bpm *L* (04/06/20 8:00 PM) Blood Pressure [71-110/30-71 mm Hg] 132/ 69mm Hg *H* (04/06/20 10:31 PM) 135/62mm Hg *H* (04/06/20 8:00 PM) Respiratory Rate [16-30 br/min] 14 br/mi n *L* (04/06/20 8:00 PM) Temperature [96.8-100.4 DegF] 98.5 DegF (04/06/20 8:00 PM) Mode of Delivery (Oxygen) Room air (04/06/20 8:00 PM) Blood pressure sites Arm, left (04/06/20 10:31 PM) Temperature Route Oral (04/06/20 8:00 PM)
--- OUTSIDE RECORDS SUMMARY | 2023-08-19 23:41 | XMS_ITS | Continuity of Care Document ---
Author Name Unknown Organization [facility] Address [address] [place] [address]- Care Team Providers Care Load Checker Name Role Phone Moisés Velasco DMD Primary Care Physician [place] [facility] [place] 08[place] - 08/13/[address] [address]- Encounter Diagnosis Anxiety(Final) - 08/13/21 Depression(Final) - 08/13/21 Discharge Disposition: A-D/C Home Attending Physician: Miky [...] opioid drug. Start Date: 10/25/20 Status: Ordered hyoscyamine 0.125 mg oral tablet, [...] 30 tablet, 1 Refills, Maintenance, 11/05/20 10:11:00EST, [facility]/pharmacy #[id number], Partial fill upon patient request if the prescription is for a schedule IIopioid drug., 162, cm, 11/05/20 8:42:00 EST, Height... Start Date: 11/05/20 Status: Ordered Melatonin = 6 mg, By Mouth, Daily at bedtime, 0 Refills, Maintenance, 10/25/20 1:27:00 EST, Partial fill uponpatient request if the prescription is for a schedule II opioid drug. Start Date: 10/25/20 Status: Ordered omeprazole 40 mg oral enteric coated capsule 1 capsule = 40 mg, By Mouth, Daily, # 30 capsule, 0 Refills, Maintenance, 08/13/21 4:44:00 EST, EC Capsule, [facility]/pharmacy #[id number], Partial fill upon patient request if the prescription is for a scheduleII opioid drug., 160, cm, 08/13/21 3:08:00 EST, Hei... Start Date: 08/13/21 Status: Ordered Proctofoam HC 1%-1% foam 1 application, Rectally, 3 times a day, PRN pain, # 10 Gm, 0 Refills, Maintenance, 08/03/21 0:55:00EST, Foam, [facility]/pharmacy #[id number], Partial fill upon patient request if the prescription is for a schedule II opioid drug., 1 application Rectally 3 times... Start Date: 08/03/21 Status: Ordered Protonix 40 mg oral delayed [...] 11/05/20 10:10:00 EST, Route to Pharmacy Electronically, [facility]/pharmacy #[id number], Partial fill upon patient request if the prescription is for a schedule II opioid drug... Start Date: 11/05/20 Status: Ordered ZyPREXA 15 mg oral tablet 1 tablet = 15 mg, By Mouth, Daily at bedtime, # 30 tablet, 0 Refills, Maintenance, 11/05/20 10:02:00 EST, Tablet, [facility]/pharmacy #[id number], Partial fill upon patient request if the prescription is for a schedule II opioid drug., 162, cm, 11/05/20 8:42:00 ES... Start Date: 11/05/20 Status: Ordered Vital Signs Most recent to oldest [Reference Range]: 1 2 Height 160 cm (08/13/21 4:54 AM) 160 cm (08/13/21 3:08 AM) Weight 113.5 kg (08/13/21 4:54 AM) 113.5 kg (08/13/21 3:08 AM) Oxygen Saturation [94-100 %] 99 % (08/13/21 3:08 AM) Pulse Rate [55-90 bpm] 86 bpm (08/13/21 3:08 AM) Blood Pressure [90-138/55-84 mm Hg] 120/ 72mm Hg (08/13/21 3:08 AM) Respiratory Rate [16-30 br/min] 16 br/mi n (08/13/21 3:08 AM) Temperature [96.8-100.4 DegF] 97.0 DegF (08/13/21 3:08 AM) Mode of Delivery (Oxygen) Room air (08/13/21 3:08 AM) Blood pressure sites Arm, right (08/13/21 3:08 AM) Temperature Route Oral (08/13/21 3:08 AM) Dry Weight 113.5 kg (08/13/21 4:54 AM) 113.5 kg (08/13/21 3:08 AM) Social History Social History Type Response Smoking Status 5-9 cigarettes (betw een 1/4 to 1/2 pack)/day in last 30 days entered on: 10/24/20 Sex
--- OUTSIDE RECORDS SUMMARY | 2023-08-19 23:41 | XMS_ITS | Continuity of Care Document ---
Author Name Unknown Organization [facility] Address [address] [place] [address]- Care Team Providers Care Rug Weaver Name Role Phone Not on Staff, PCP Primary Care Physician Unavail able Encounter [facility] [place](s): 05/03/20 - 05/10/20 [facility] [address] [place] [address]- [facility] Attending Physician: Gerardo GUSMAN, Sabina Lindquist Referring Physician: Not on Staff, Referring MD Allergies, Adverse Reactions, Alerts Substance Reaction Severity Status sulfa drugs Active Nuts Active Medications Dexmethylphenidate By Mouth, 0 Refills, Maintenance, 05/03/20 12:50:00 EDT Start Date: 05/03/20 Status: Ordered Escitalopram By Mouth, Daily, 0 Refills, Maintenance, 05/03/20 12:50:00 EDT Start Date: 05/03/20 Status: Ordered Vital Signs Most recent to oldest [Reference Range]: 1 Height 165 cm (05/03/20 12:47 PM) Oxygen Saturation [94-100 %] 99 % (05/03/20 12:47 PM) Pulse Rate [55-90 bpm] 72 bpm (05/03/20 12:47 PM) Blood Pressure [71-110/30-71 mm Hg] 149/ 77mm Hg *H* (05/03/20 12:47 PM) Respiratory Rate [16-30 br/min] 16 br/mi n (05/03/20 12:47 PM) Temperature [96.8-100.4 DegF] 99.2 DegF (05/03/20 12:47 PM) Mode of Delivery (Oxygen) Room air (05/03/20 12:47 PM) Blood pressure sites Arm, right (05/03/20 12:47 PM) Temperature Route Temporal (05/03/20 12:47 PM)
--- OUTSIDE RECORDS SUMMARY | 2023-08-19 23:41 | XMS_ITS | Continuity of Care Document ---
Author Name Unknown Organization [facility] Address [address] [place] [address]- Care Team Providers Care Motor Equipment Commanding Officer Name Role Phone Moisés Velasco DMD Primary Care Physician [place] [facility] [place] 08/02/21 - 08/03/[address] [address]- Discharge Disposition: A-D/C Home Attending Physician: Katy Espinoza MD Admitting Physician: Katy Espinoza MD Referring Physician: Not on Staff, Referring [...] 30 tablet, 1 Refills, Maintenance, 11/05/20 10:11:00EST, [facility]/pharmacy #[id number], Partial fill upon patient request if the prescription is for a schedule IIopioid drug., 162, cm, 11/05/20 8:42:00 EST, Height... Start Date: 11/05/20 Status: Ordered Melatonin = 6 mg, By Mouth, Daily at bedtime, 0 Refills, Maintenance, 10/25/20 1:27:00 EST, Partial fill uponpatient request if the prescription is for a schedule II opioid drug. Start Date: 10/25/20 Status: Ordered Proctofoam HC 1%-1% foam 1 application, Rectally, 3 times a day, PRN pain, # 10 Gm, 0 Refills, Maintenance, 08/03/21 0:55:00EST, Foam, [facility]/pharmacy #[id number], Partial fill upon patient request if [...] 11/05/20 10:10:00 EST, Route to Pharmacy Electronically, [facility]/pharmacy #[id number], Partial fill upon patient request if the prescription is for a schedule II opioid drug... Start Date: 11/05/20 Status: Ordered ZyPREXA 15 mg oral tablet 1 tablet = 15 mg, By Mouth, Daily at bedtime, # 30 tablet, 0 Refills, Maintenance, 11/05/20 10:02:00 EST, Tablet, [facility]/pharmacy #[id number], Partial fill upon patient request if the prescription is for a schedule II opioid drug., 162, cm, 11/05/20 8:42:00 ES... Start Date: 11/05/20 Status: Ordered Vital Signs Most recent to oldest [Reference Range]: 1 Height 165 cm (08/02/21 9:16 PM) Weight 107 kg (08/02/21 9:16 PM) Oxygen Saturation [94-100 %] 99 % (08/02/21 9:16 PM) Pulse Rate [55-90 bpm] 106 bpm *H* (08/02/21 9:16 PM) Blood Pressure [90-138/55-84 mm Hg] 162/ 90mm Hg *H* (08/02/21 9:16 PM) Respiratory Rate [16-30 br/min] 19 br/mi n (08/02/21 9:16 PM) Temperature [96.8-100.4 DegF] 97.7 DegF (08/02/21 9:16 PM) Mode of Delivery (Oxygen) Room air (08/02/21 9:16 PM) Temperature Route Oral (08/02/21 9:16 PM) Dry Weight 107 kg (08/02/21 9:16 PM) Social History Social History Type Response Smoking Status 5-9 cigarettes (betw een 1/4 to 1/2 pack)/day in last 30 days entered on: 10/24/20 Sex
[2023-08-19 23:50] VITALS: BP 133/83; PULSE 97; RESP 18; TEMP 37; O2SAT 95
[2023-08-20] MEDS: traZODone HCL 50 MG TABLET PO (00:54)
[2023-08-20] MEDS: hydrOXYzine HCL 25 MG TABLET PO ×2 (00:54→18:30)
[2023-08-20 01:04] VITALS: BMI 33.0
--- NOTE | 2023-08-20 05:13 | PC.ADMIT ---
Patient is a 23 year old male admitted to [facility] on 08/19/23 at 2345 from [facility] on a CV for SI after overdosing on ativan.? Patient has been undergoing many recent life stressors including the of his mother, and getting a DUI prior to arriving to emergency room. Patient was uncooperative during initial assessment in emergency room requiring IM injections of haldol and ativan. Patient reports that he normally has 6-7 drinks daily, last drink being Dec 4 prior to ED arrival. Toxicology positive for cannabis only. Upon arrival to unit, patient A+O x 4. Cooperative with admission process. BETO?s signed. Skin and contraband check completed. Patient denies SI/HI/AH/VH. Patient placed on CIWA Q4 hours. Not scoring as of this writing. Patient currently declining flu shot.
[2023-08-20 06:00] VITALS: BP 121/51; PULSE 84; TEMP 37; O2SAT 97
[2023-08-20] MEDS: ARIPiprazole 5 MG TABLET PO (08:20)
[2023-08-20] MEDS: Thiamine HCL 100 MG TABLET PO (08:20)
[2023-08-20] MEDS: Folic Acid 1 MG TABLET PO (08:20)
[2023-08-20] MEDS: Multivitamin TABLET 1 TAB PO (08:20)
[2023-08-20 08:56] LABS: Estimated Average Glucose 100 mg/dL; Hemoglobin A1C 121.0675 umol/L; Hemoglobin A1c % 5.1 % (<6.0)
[2023-08-20 09:23] LABS: Alanine Aminotransferase 33 U/L (0-40); Albumin Level 4.5 g/dL (3.5-5.0); Alkaline Phosphatase 49 U/L (39-117); Anion Gap 10 (12-20); Aspartate Amino Transferase 25 U/L (5-37); Bilirubin Total 0.6 mg/dL (0.0-1.0); Blood Urea Nitrogen 11 mg/dL (9-16); Calcium 9.7 mg/dL (8.4-10.2); Carbon Dioxide 29 mmol/L (22-29); Chloride 105 mmol/L (96-108); Cholesterol 197 mg/dL (<200); Creatinine Clr Calc Pharmacy 143.4; Estimated Glomerular Filt Rate > 60; Glucose Fasting 98 mg/dL (60-99); HDL Cholesterol 41 mg/dL (>40); LDL Cholesterol Calculated 118 mg/dL (<100); Magnesium 2.3 mg/dL (1.6-2.6); Potassium 4.4 mmol/L (3.3-5.1); Sodium 140 mmol/L (135-145); Total Protein 7.2 g/dL (6.5-8.0); Triglycerides 191 mg/dL (<150)
[2023-08-20 09:40] LABS: Free T4 (Free Thyroxine) 1.04 ng/dL (0.71-1.85); Thyroid Stimulating Hormone 2.24 uIU/mL (0.32-4.0)
[2023-08-20 09:45] LABS: Folate 14.5 ng/mL (> or = 4.0); Vitamin B12 1265 pg/mL (200-900)
--- NOTE | 2023-08-20 09:59 | HO.PSYADMNOT ---
HPI Date of Service: 08/20/23 Chief Complaint: Bipolar d/o, s/p Lorazepam OD, Alcohol use d/o Sources of Information: patient interviewed, chart reviewed and crisis/core team assessment reviewed HPI Subjective Notes: Marks Warning and Conditional Voluntary Narrative: Pt is a 23 yo male with hx of Crohn's disease, depression, significant trauma history and PTSD, alcohol abuse, who presents for depression and intentional overdose and the face of untreated psychiatric illness and alcohol abuse. Patient reports that he has been quite depressed over the past several months, low energy, diminished interest, guilty feelings, struggle with concentration, decreased appetite and trouble sleeping. 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 Patient has Crohn's disease and last week, he lost his insurance because he was making just a little bit too much money to qualify; he reduced his hours and has been trying to appeal insurance but this has caused him much stress. Patient when out drinking that night, and driving home from the bar was pulled over and received an OUI. The following day, he felt overwhelmed with worry, feeling like he'll never get out from under the stress, financial strain and so impulsively took 4 Ativan 1 mg tabs. Patient said this was not really an attempt to be , but just to disconnect from reality for while. Patient said he texted friends prior to taking the Ativan and someone called 911. At the emergency room he does not remember much but apparently he was agitated and needed chemical restraint. Patient said he was once diagnosed with bipolar disorder however it was when he was 20 years old and manic behavior started immediately upon learning that his mother was murdered, or patient was crying incessantly and trying to call the police and newspapers. Patient denies any manic or hypo man symptoms or behaviors/episodes otherwise. Patient says he very much wants help and is open to medication management Past Psychiatric History: Multiple psychiatric admissions History of SI; apparently some history of attempts Medical Evaluation Reviewed: Hospitalist [facility] Medical History (Updated 08/20/23 @ 15:56 by Warren Jamison MD) Alcohol use disorder PTSD (post-traumatic stress disorder) MDD (major depressive disorder), recurrent severe, without psychosis Family History: Patient's mother drug addiction Social History: Patient removed from mother's custody when he was around 13 years old, raised by maternal grandparents Patient's mother was murdered when he was 20 years old, case is still currently on going Substance History: Alcohol abuse, at least 5 drinks a day most days of the week Trauma History: Chaotic upbringing as a child; other traumas refer to but not disclosed Diagnostics Vital Signs (24Hr): Vital Signs - 24 hr 08/19/23 23:50 Temperature 98.6 F Pulse Rate 97 Respiratory Rate 18 Blood Pressure 133/83 Pulse Oximetry 95 Oxygen Delivery Method Room Air BMI result Body Mass Index 33.0 Labs 08/20/23 08:37 Labs: Laboratory Results - last 48 hr 08/20/23 08:37 Sodium 140 Potassium 4.4 D Chloride 105 Carbon Dioxide 29 Anion Gap 10 L BUN 11 Creatinine 0.84 Estim Creat Clear Calc 143.4 Estimated GFR > 60 Fasting Glucose 98 Estimat Average Glucose 100 Hemoglobin A1c % 5.1 Calcium 9.7 Magnesium 2.3 Total Bilirubin 0.6 AST 25 ALT 33 Alkaline Phosphatase 49 Total Protein 7.2 Albumin 4.5 Triglycerides 191 H Cholesterol 197 LDL Cholesterol, Calc 118 H HDL Cholesterol 41 Vitamin B12 1265 H Folate 14.5 TSH 2.24 Free T4 1.04 Meds/Allergies Meds Home Medications Medication Instructions Recorded Confirmed Type aripiprazole 5 mg tablet 5 mg PO DAILY 08/20/23 08/20/23 History epinephrine 0.3 mg/0.3 mL 08/20/23 History injection, auto-injector (EpiPen 2-Roderick) eszopiclone 2 mg tablet 2 mg PO BEDTIME 08/20/23 08/20/23 History ibuprofen 400 mg tablet 400 mg PO Q6H PRN Pain 08/20/23 08/20/23 History lorazepam 1 mg tablet 2 mg PO BID PRN anxiety 08/20/23 08/20/23 History Allergies Allergies Allergy/AdvReac Type Severity Reaction Status Date / Time Sulfa (Sulfonamide Allergy Unknown Verified 02/08/22 09:16 Antibiotics) tree nut Allergy Hives Verified 03/11/22 22:34 Mental Status Exam Mental Status Exam Narrative: Pt is alert and oriented; behavior is cooperative, friendly and calm; patient is not in distress; dressed in casual attire with unkempt hair but adequate hygiene; mood is described as depressed and affect congruent; eye contact appropriate; Speech is normal rate, volume and prosody and not pressured; no psychomotor agitation/retardation present; thought process is organized and goal directed; Thought content is on history, traumatic events, tx; otherwise pertinent to relevant topics and without any delusional content, paranoid ideations or grandiosity; denies any SI/HI. There is no evidence of perceptual disturbance. Patients insight and judgment impaired but improving Assessment & Plan Assessment & Plan (1) MDD (major depressive disorder), recurrent severe, without psychosis: Status: Acute Code(s): F33.2 - Major depressive disorder, recurrent severe without psychotic features (2) PTSD (post-traumatic stress disorder): Status: Acute Code(s): F43.10 - Post-traumatic stress disorder, unspecified (3) Alcohol use disorder: Status: Acute Code(s): F10.90 - Alcohol use, unspecified, uncomplicated Plan HPI: Pt is a 23 yo male with hx of Crohn's disease, depression, significant trauma history and PTSD, alcohol abuse, who presents for depression and intentional overdose and the face of untreated psychiatric illness and alcohol abuse. Patient reports that he has been quite depressed over the past several months, low energy, diminished interest, guilty feelings, struggle with concentration, decreased appetite and trouble sleeping. 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 Patient has Crohn's disease and last week, he lost his insurance because he was making just a little bit too much money to qualify; he reduced his hours and has been trying to appeal insurance but this has caused him much stress. Patient when out drinking that night, and driving home from the bar was pulled over and received an OUI. The following day, he felt overwhelmed with worry, feeling like he'll never get out from under the stress, financial strain and so impulsively took 4 Ativan 1 mg tabs. Patient said this was not really an attempt to be , but just to disconnect from reality for while. Patient said he texted friends prior to taking the Ativan and someone called 911. At the emergency room he does not remember much but apparently he was agitated and needed chemical restraint. Patient said he was once diagnosed with bipolar disorder however it was when he was 20 years old and manic behavior started immediately upon learning that his mother was murdered, or patient was crying incessantly and trying to call the police and newspapers. Patient denies any manic or hypomanic symptoms or behaviors/episodes otherwise. Patient says he very much wants help and is open to medication management Impression/plan: Patient has had long history of various traumas including being born while his mother was addicted to opiates and needing to be removed from her when he was 12 years old; she was murdered when he was 20 years old. The fact that the case is still ongoing is a consistent trigger. Patient has had much depression for years; he says he has never really taking any medications prescribed to him and is not sure why but just seems to forget. He carried a diagnosis of bipolar disorder however prior to this isolated supposed manic episode, patient was calm, without any manic symptoms and symptoms started immediately upon finding out his mother was murdered. No other such behaviors episodes since. Given this report, other seems a low likelihood that patient has bipolar disorder and thus first-line treatment for depression and PTSD is an SSRI. Stainless Steel Finisher discussed risks/side effects of Prozac (and trazodone), including potential for triggering manic episode which patient understood, asked questions about and with which wants to continue. Discussed alcoholism and patient understands that it is more serious than he has been admitting and that it is hindering any progress in treatment. -diagnosis of MDD, PTSD with a rule out for reactive attachment disorder; likely ADHD and alcohol abuse Plan: CV Q 15 minute checks Starting Prozac 10 mg daily for depression/ptsd Increasing trazodone to 100 mg q.h.s. for insomnia; 50 mg did not do much Clonidine 0.1 mg q.h.s. for insomnia Clonidine p.r.n. for anxiety Discontinuing CIWA; no withdrawal symptoms at all and it has been about 4 days since last drink Patient has Crohn's and is about due or overdue for Remicade; notified hospitalist Patient educated on: diagnosis, medication risk/benefits, substance abuse, therapeutic strategies and medical condition Informed Consent: understands Reason for continued inpatient stay Substantial Risk for: rapid decompensation Statement Statement: I have reviewed the history and physical and performed a pertinent examination on my patient. No changes have occurred unless specified. If the History and Physical was not performed prior to admission, the Hospitalist's service will be consulted for completing the admission physical. Time Spent With Patient Time: Total time managing care of this patient today ____ minutes.
[2023-08-20] MEDS: Nicotine Polacrilex 2 MG GUM 4 MG BUCCAL ×4 (11:08→18:30)
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
[2023-08-20] MEDS: FLUoxetine HCl 10 MG CAPSULE PO (13:38)
[2023-08-20] MEDS: OLANZapine 5 MG TABLET PO (15:55)
[2023-08-20 18:15] VITALS: PULSE 81; RESP 16; TEMP 36.9; O2SAT 95
[2023-08-20 20:55] VITALS: BP 112/74; PULSE 70
[2023-08-20] MEDS: cloNIDine HCL 0.1 MG TABLET PO (20:59)
[2023-08-21] MEDS: hydrOXYzine HCL 25 MG TABLET PO (01:07)
[2023-08-21] MEDS: OLANZapine 5 MG TABLET PO (01:07)
[2023-08-21] MEDS: Thiamine HCL 100 MG TABLET PO (09:04)
[2023-08-21] MEDS: Folic Acid 1 MG TABLET PO (09:04)
[2023-08-21] MEDS: FLUoxetine HCl 10 MG CAPSULE PO (09:04)
[2023-08-21] MEDS: Multivitamin TABLET 1 TAB PO (09:04)
[2023-08-21] MEDS: Nicotine Polacrilex 2 MG GUM 4 MG BUCCAL (09:06)
[2023-08-21 09:25] VITALS: BP 129/85; PULSE 85; RESP 18; TEMP 36.4; O2SAT 97
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
[2023-08-21] MEDS: OLANZapine 2.5 MG TABLET PO (12:40)
[2023-08-21] MEDS: Nicotine Polacrilex Lozenge 2 MG LOZENGE BUCCAL ×3 (12:51→21:49)
[2023-08-21 15:50] VITALS: BP 133/83; PULSE 101; TEMP 36.2
[2023-08-21] MEDS: cloNIDine HCL 0.1 MG TABLET PO ×2 (15:54→21:49)
[2023-08-21] MEDS: Acetaminophen 325 MG TABLET 650 MG PO (17:58)
[2023-08-21] MEDS: traZODone HCL 100 MG TABLET PO (21:52)
[2023-08-22] MEDS: hydrOXYzine HCL 25 MG TABLET PO (03:40)
[2023-08-22] MEDS: Folic Acid 1 MG TABLET PO (08:13)
[2023-08-22] MEDS: FLUoxetine HCl 10 MG CAPSULE PO (08:13)
[2023-08-22] MEDS: Multivitamin TABLET 1 TAB PO (08:13)
[2023-08-22] MEDS: Thiamine HCL 100 MG TABLET PO (08:13)
[2023-08-22 08:32] VITALS: BP 118/62; PULSE 76; RESP 16; TEMP 36.4; O2SAT 98
[2023-08-22] MEDS: Nicotine Polacrilex Lozenge 2 MG LOZENGE BUCCAL ×2 (10:36→20:44)
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
[2023-08-22] MEDS: OLANZapine 2.5 MG TABLET PO (12:48)
[2023-08-22] MEDS: OLANZapine 5 MG TABLET PO (16:18)
[2023-08-22 18:00] VITALS: BP 135/67; PULSE 72; TEMP 37.1; O2SAT 98
[2023-08-22] MEDS: cloNIDine HCL 0.1 MG TABLET PO (20:44)
[2023-08-23] MEDS: traZODone HCL 100 MG TABLET PO ×2 (00:26→23:08)
[2023-08-23] MEDS: FLUoxetine HCl 10 MG CAPSULE PO (09:11)
[2023-08-23] MEDS: OLANZapine 5 MG TABLET PO (09:11)
[2023-08-23] MEDS: Multivitamin TABLET 1 TAB PO (09:11)
[2023-08-23] MEDS: Thiamine HCL 100 MG TABLET PO (09:11)
[2023-08-23] MEDS: Folic Acid 1 MG TABLET PO (09:11)
--- NOTE | 2023-08-23 09:13 | P.PNPSI_ITS ---
Subjective Subjective Date of Service: 08/23/23 Reason For Visit: Bipolar d/o, s/p Lorazepam OD, Alcohol use d/o Interim History: Met with Patient; discussed with team; reviewed chart feeling much better; he says normal like he has good roots and shares how he remained calm, non-reactive during acute moment in [place]. No manic symptoms and patient has remained in good behavioral and impulse control. Pt denies any SI at all; maintains that this was never an actual suicide attempt in the 1st voice. Pt reports feeling that he's likely getting ready for discharge, but still having trouble sleeping, feeling restless and not getting sound sleep. Discussed medication management as well as residual withdraw symptoms, combined with hx of working 3rd shift and pt understands insomnia may take longer to resolve. discussed med and will try to use Clonidine before utilizing Zyprexa to avoid side-effect risks. Discussed history of ADHD and patient was both diagnosed on stimulant medication throughout school; Focalin caused some emotional numbing but it did help him focus and be productive; agrees to trying Adderall to see if it is helpful at all although he understands he will on likely be discharged on this medication -discussed alcohol abuse, risks of relapse and treatment; patient said he is getting into AA; would like an IOP but knows that due to insurance this is not currently an option -Discussed insurance issue; discussed pending court case for OUI Mental Status Exam Mental Status Exam Narrative: Pt is alert and oriented; behavior is cooperative, friendly and calm; patient is not in distress; dressed in casual attire, well groomed; mood is described as normal and affect congruent, calm; eye contact appropriate; Speech is normal rate, volume and prosody and not pressured; no psychomotor agitation/retardation present; thought process is organized and goal directed; Thought content is on current and future treatment; court case; otherwise pertinent to relevant topics and without any delusional content, paranoid ideations or grandiosity; denies any SI/HI. There is no evidence of perceptual disturbance. Patients insight and judgment fair Diagnostics Vital Signs (24Hr): Vital Signs - 24 hr 08/22/23 18:00 Temperature 98.7 F Pulse Rate 72 Blood Pressure 135/67 Pulse Oximetry 98 Oxygen Delivery Method Room Air BMI result Body Mass Index 33.0 Labs 08/20/23 08:37 Medications Medications Current Medications Acetaminophen (Acetaminophen 325 Mg Tablet) 650 mg PO Q6H PRN PRN Reason: Headache/Pain Mild Scale (1-3) Last Admin: 08/21/23 17:58 Dose: 650 mg Al Hydroxide/Mg Hydroxide (Magnesium Hydrox/Alum Hydrox 30 Ml Oral.Susp) 30 ml PO Q6H PRN PRN Reason: Heartburn/Nausea Clonidine HCl (Clonidine Hcl 0.1 Mg Tablet) 0.1 mg PO BEDTIME [facility]ANIYA; Protocol Last Admin: 08/22/23 20:44 Dose: 0.1 mg Clonidine HCl (Clonidine Hcl 0.1 Mg Tablet) 0.1 mg PO Q4H PRN; Protocol PRN Reason: anxiety Last Admin: 08/21/23 15:54 Dose: 0.1 mg Epinephrine (Epinephrine 1 Mg/Ml Vial) 0.3 mg SUBCUT ONCE PRN PRN Reason: allergic response Fluoxetine HCl (Fluoxetine Hcl 10 Mg Capsule) 10 mg PO DAILY [facility] Last Admin: 08/22/23 08:13 Dose: 10 mg Folic Acid (Folic Acid 1 Mg Tablet) 1 mg PO DAILY [facility] Last Admin: 08/22/23 08:13 Dose: 1 mg Hydroxyzine HCl (Hydroxyzine Hcl 25 Mg Tablet) 25 mg PO Q6H PRN PRN Reason: Anxiety Last Admin: 08/22/23 03:40 Dose: 25 mg Ibuprofen (Ibuprofen 400 Mg Tablet) 400 mg PO Q6H PRN PRN Reason: Pain, Mild (Pain Scale 1-3) Magnesium Hydroxide (Milk Of Magnesia 30 Ml Oral.Susp) 30 ml PO DAILY PRN PRN Reason: Constipation Multivitamins/Vitamin C (Multivitamin Tablet) 1 tab PO DAILY [facility] Last Admin: 08/22/23 08:13 Dose: 1 tab Nicotine Polacrilex (Nicotine Polacrilex Lozenge 2 Mg Lozenge) 2 mg BUCCAL Q2H PRN PRN Reason: Nicotine Cravings Last Admin: 08/22/23 20:44 Dose: 2 mg Olanzapine (Olanzapine 2.5 Mg Tablet) 2.5 mg PO Q6H PRN PRN Reason: mild agitation Last Admin: 08/22/23 12:48 Dose: 2.5 mg Olanzapine (Olanzapine 5 Mg Tablet) 5 mg PO TID PRN PRN Reason: moderate to severe anxiety Last Admin: 08/22/23 16:18 Dose: 5 mg Thiamine HCl (Thiamine Hcl 100 Mg Tablet) 100 mg PO DAILY [facility] Last Admin: 08/22/23 08:13 Dose: 100 mg Trazodone HCl (Trazodone Hcl 100 Mg Tablet) 100 mg PO BEDTIME PRN PRN Reason: Insomnia Last Admin: 08/23/23 00:26 Dose: 100 mg Allergies Allergies Allergy/AdvReac Type Severity Reaction Status Date / Time Sulfa (Sulfonamide Allergy Unknown Verified 02/08/22 09:16 Antibiotics) tree nut Allergy Hives Verified 03/11/22 22:34 Assessment & Plan Assessment & Plan (1) Medical clearance for psychiatric admission: Status: Acute Code(s): Z00.8 - Encounter for other general examination Plan HPI: Pt is a 23 yo male with hx of Crohn's disease, depression, significant trauma history and PTSD, alcohol abuse, who presents for depression and intentional overdose and the face of untreated psychiatric illness and alcohol abuse. Patient reports that he has been quite depressed over the past several months, low energy, diminished interest, guilty feelings, struggle with concentration, decreased appetite and trouble sleeping. 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 Patient has Crohn's disease and last week, he lost his insurance because he was making just a little bit too much money to qualify; he reduced his hours and has been trying to appeal insurance but this has caused him much stress. Patient when out drinking that night, and driving home from the bar was pulled over and received an OUI. The following day, he felt overwhelmed with worry, feeling like he'll never get out from under the stress, financial strain and so impulsively took 4 Ativan 1 mg tabs. Patient said this was not really an attempt to be , but just to disconnect from reality for while. Patient said he texted friends prior to taking the Ativan and someone called 911. At the emergency room he does not remember much but apparently he was agitated and needed chemical restraint. Patient said he was once diagnosed with bipolar disorder however it was when he was 20 years old and manic behavior started immediately upon learning that his mother was murdered, or patient was crying incessantly and trying to call the police and newspapers. Patient denies any manic or hypomanic symptoms or behaviors/episodes otherwise. Patient says he very much wants help and is open to medication management Impression/plan: Patient has had long history of various traumas including being born while his mother was addicted to opiates and needing to be removed from her when he was 12 years old; she was murdered when he was 20 years old. The fact that the case is still ongoing is a consistent trigger. Patient has had much depression for years; he says he has never really taking any medications prescribed to him and is not sure why but just seems to forget. He carried a diagnosis of bipolar disorder however prior to this isolated supposed manic episode, patient was calm, without any manic symptoms and symptoms started immediately upon finding out his mother was murdered. No other such behaviors episodes since. Given this report, other seems a low likelihood that patient has bipolar disorder and thus first-line treatment for depression and PTSD is an SSRI. Sweatband Maker discussed risks/side effects of Prozac (and trazodone), including potential for triggering manic episode which patient understood, asked questions about and with which wants to continue. Discussed alcoholism and patient understands that it is more serious than he has been admitting and that it is hindering any progress in treatment. -diagnosis of MDD, PTSD with a rule out for reactive attachment disorder; likely ADHD and alcohol abuse Hospital course: 08/21: Continue current regimen and plans 08/22:Continue current regimen and plans 08/23 feeling much better; he says normal like he has good roots and shares how he remained calm, non-reactive during acute moment in [facility] [place]. No manic symptoms and patient has remained in good behavioral and impulse control. Pt denies any SI at all; maintains that this was never an actual suicide attempt in the 1st voice. Pt reports feeling that he's likely getting ready for discharge, but still having trouble sleeping, feeling restless and not getting sound sleep. Discussed medication management as well as residual withdraw symptoms, combined with hx of working 3rd shift and pt understands insomnia may take longer to resolve. -discussed med and will try to use Clonidine before utilizing Zyprexa to avoid side-effect risks. -Discussed history of ADHD and patient was both diagnosed on stimulant medication throughout school; Focalin caused some emotional numbing but it did help him focus and be productive; agrees to trying Adderall to see if it is helpful at all although he understands he will on likely be discharged on this medication -discussed alcohol abuse, risks of relapse and treatment; patient said he is getting into AA; would like an IOP but knows that due to insurance this is not currently an option -Discussed insurance issue; discussed pending court case for OUI Plan: CV Q 15 minute checks Trial dose of Adderall 5 mg extended release daily Continue Prozac 10 mg daily for depression/ptsd Continue trazodone to 100 mg q.h.s. for insomnia; 50 mg did not do much Continue Clonidine 0.1 mg q.h.s. for insomnia P.r.n. Clonidine p.r.n. for anxiety P.r.n. Zyprexa 2.5 mg for mild to moderate agitation/5 mg for moderate to severe agitation Discontinuing CIWA; no withdrawal symptoms at all and it has been about 4 days since last drink Patient has Crohn's and is about due or overdue for Remicade; notified hospitalist Patient educated on: diagnosis, medication risk/benefits and substance abuse Informed Consent: understands Reason for continued inpatient stay Substantial Risk for: rapid decompensation Time Spent With Patient Time: Total time managing care of this patient today ____ minutes.
[2023-08-23 10:41] VITALS: BP 136/66; PULSE 51; RESP 18; TEMP 36.2; O2SAT 99
[2023-08-23] MEDS: Nicotine Polacrilex 2 MG GUM 4 MG BUCCAL ×4 (12:19→22:11)
[2023-08-23] MEDS: cloNIDine HCL 0.1 MG TABLET PO ×2 (12:24→22:22)
[2023-08-23] MEDS: hydrOXYzine HCL 25 MG TABLET PO (16:16)
[2023-08-23 18:00] VITALS: PULSE 60; RESP 18; TEMP 36.1; O2SAT 98
[2023-08-24] MEDS: Nicotine Polacrilex 2 MG GUM 4 MG BUCCAL ×8 (01:24→22:34)
[2023-08-24] MEDS: traZODone HCL 100 MG TABLET PO ×2 (01:38→22:38)
[2023-08-24 06:00] VITALS: BP 127/57; PULSE 56; RESP 18; TEMP 36.7; O2SAT 99
[2023-08-24] MEDS: FLUoxetine HCl 10 MG CAPSULE PO (08:42)
[2023-08-24] MEDS: Multivitamin TABLET 1 TAB PO (08:42)
[2023-08-24] MEDS: Dextroamphetamine/Amphetamine XR 5 MG CAP.ER.24H PO (08:42)
[2023-08-24] MEDS: Folic Acid 1 MG TABLET PO (08:42)
[2023-08-24] MEDS: Thiamine HCL 100 MG TABLET PO (08:42)
--- NOTE | 2023-08-24 09:36 | P.PNPSI_ITS ---
Subjective Subjective Date of Service: 08/24/23 Reason For Visit: Bipolar d/o, s/p Lorazepam OD, Alcohol use d/o Interim History: met with patient; discussed with team doing well, good mood; feels adderall helping. Found out he was able to get insurance and so hopeful about getting into IOP. Mental Status Exam Mental Status Exam Narrative: Pt is alert and oriented; behavior is cooperative, friendly and calm; patient is not in distress; dressed in casual attire, well groomed, clean shaven; mood is described as good and affect congruent, calm; eye contact appropriate; Speech is normal rate, volume and prosody and not pressured; no psychomotor agitation/retardation present; thought process is organized and goal directed; Thought content is on current and future treatment; court case; otherwise pertinent to relevant topics and without any delusional content, paranoid ideations or grandiosity; denies any SI/HI. There is no evidence of perceptual disturbance. Patients insight and judgment fair Diagnostics Vital Signs (24Hr): Vital Signs - 24 hr 08/23/23 10:41 08/23/23 18:00 08/24/23 06:00 Temperature 97.2 F 97 F 98.0 F Pulse Rate 51 60 56 Respiratory Rate 18 18 18 Blood Pressure 136/66 127/57 L Pulse Oximetry 99 98 99 Oxygen Delivery Method Room Air Room Air Room Air BMI result Body Mass Index 33.0 Labs 08/20/23 08:37 Medications Medications Current Medications Acetaminophen (Acetaminophen 325 Mg Tablet) 650 mg PO Q6H PRN PRN Reason: Headache/Pain Mild Scale (1-3) Last Admin: 08/21/23 17:58 Dose: 650 mg Al Hydroxide/Mg Hydroxide (Magnesium Hydrox/Alum Hydrox 30 Ml Oral.Susp) 30 ml PO Q6H PRN PRN Reason: Heartburn/Nausea Amphetamine/Dextroamphetamine (Dextroamphetamine/Amphetamine Xr 5 Mg Cap.Er.24h) 5 mg PO DAILY [facility] Last Admin: 08/24/23 08:42 Dose: 5 mg Clonidine HCl (Clonidine Hcl 0.1 Mg Tablet) 0.1 mg PO BEDTIME [facility]ANIYA; Protocol Last Admin: 08/23/23 22:22 Dose: 0.1 mg Clonidine HCl (Clonidine Hcl 0.1 Mg Tablet) 0.1 mg PO Q4H PRN; Protocol PRN Reason: mild anxiety (try first) Last Admin: 08/23/23 12:24 Dose: 0.1 mg Epinephrine (Epinephrine 1 Mg/Ml Vial) 0.3 mg SUBCUT ONCE PRN PRN Reason: allergic response Fluoxetine HCl (Fluoxetine Hcl 10 Mg Capsule) 10 mg PO DAILY [facility] Last Admin: 08/24/23 08:42 Dose: 10 mg Folic Acid (Folic Acid 1 Mg Tablet) 1 mg PO DAILY [facility] Last Admin: 08/24/23 08:42 Dose: 1 mg Hydroxyzine HCl (Hydroxyzine Hcl 25 Mg Tablet) 25 mg PO Q6H PRN PRN Reason: Anxiety Last Admin: 08/23/23 16:16 Dose: 25 mg Ibuprofen (Ibuprofen 400 Mg Tablet) 400 mg PO Q6H PRN PRN Reason: Pain, Mild (Pain Scale 1-3) Magnesium Hydroxide (Milk Of Magnesia 30 Ml Oral.Susp) 30 ml PO DAILY PRN PRN Reason: Constipation Multi-Ingred Cream/Lotion/Oil/Oint (Mineral Oil/Petrolatum,White 106 Gm Tube) 1 appl TOPICAL TID PRN; Protocol PRN Reason: dry skin Multivitamins/Vitamin C (Multivitamin Tablet) 1 tab PO DAILY [facility] Last Admin: 08/24/23 08:42 Dose: 1 tab Nicotine Polacrilex (Nicotine Polacrilex 2 Mg Gum) 4 mg BUCCAL Q2H PRN PRN Reason: Nicotine Cravings Last Admin: 08/24/23 09:35 Dose: 4 mg Olanzapine (Olanzapine 2.5 Mg Tablet) 2.5 mg PO Q6H PRN PRN Reason: mild agitation Last Admin: 08/22/23 12:48 Dose: 2.5 mg Olanzapine (Olanzapine 5 Mg Tablet) 5 mg PO TID PRN PRN Reason: moderate to severe anxiety Last Admin: 08/23/23 09:11 Dose: 5 mg Thiamine HCl (Thiamine Hcl 100 Mg Tablet) 100 mg PO DAILY [facility] Last Admin: 08/24/23 08:42 Dose: 100 mg Trazodone HCl (Trazodone Hcl 100 Mg Tablet) 100 mg PO BEDTIME PRN PRN Reason: Insomnia Last Admin: 08/24/23 01:38 Dose: 100 mg Allergies Allergies Allergy/AdvReac Type Severity Reaction Status Date / Time Sulfa (Sulfonamide Allergy Unknown Verified 02/08/22 09:16 Antibiotics) tree nut Allergy Hives Verified 03/11/22 22:34 Assessment & Plan Assessment & Plan (1) MDD (major depressive disorder), recurrent severe, without psychosis: Status: Acute Code(s): F33.2 - Major depressive disorder, recurrent severe without psychotic features (2) PTSD (post-traumatic stress disorder): Status: Acute Code(s): F43.10 - Post-traumatic stress disorder, unspecified (3) Alcohol use disorder: Status: Acute Code(s): F10.90 - Alcohol use, unspecified, uncomplicated Plan HPI: Pt is a 23 yo male with hx of Crohn's disease, depression, significant trauma history and PTSD, alcohol abuse, who presents for depression and intentional overdose and the face of untreated psychiatric illness and alcohol abuse. Patient reports that he has been quite depressed over the past several months, low energy, diminished interest, guilty feelings, struggle with concentration, decreased appetite and trouble sleeping. 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 Patient has Crohn's disease and last week, he lost his insurance because he was making just a little bit too much money to qualify; he reduced his hours and has been trying to appeal insurance but this has caused him much stress. Patient when out drinking that night, and driving home from the bar was pulled over and received an OUI. The following day, he felt overwhelmed with worry, feeling like he'll never get out from under the stress, financial strain and so impulsively took 4 Ativan 1 mg tabs. Patient said this was not really an attempt to be , but just to disconnect from reality for while. Patient said he texted friends prior to taking the Ativan and someone called 911. At the emergency room he does not remember much but apparently he was agitated and needed chemical restraint. Patient said he was once diagnosed with bipolar disorder however it was when he was 20 years old and manic behavior started immediately upon learning that his mother was murdered, or patient was crying incessantly and trying to call the police and newspapers. Patient denies any manic or hypomanic symptoms or behaviors/episodes otherwise. Patient says he very much wants help and is open to medication management Impression/plan: Patient has had long history of various traumas including being born while his mother was addicted to opiates and needing to be removed from her when he was 12 years old; she was murdered when he was 20 years old. The fact that the case is still ongoing is a consistent trigger. Patient has had much depression for years; he says he has never really taking any medications prescribed to him and is not sure why but just seems to forget. He carried a diagnosis of bipolar disorder however prior to this isolated supposed manic episode, patient was calm, without any manic symptoms and symptoms started immediately upon finding out his mother was murdered. No other such behaviors episodes since. Given this report, other seems a low likelihood that patient has bipolar disorder and thus first-line treatment for depression and PTSD is an SSRI. Personalization Specialist discussed risks/side effects of Prozac (and trazodone), including potential for triggering manic episode which patient understood, asked questions about and with which wants to continue. Discussed alcoholism and patient understands that it is more serious than he has been admitting and that it is hindering any progress in treatment. -diagnosis of MDD, PTSD with a rule out for reactive attachment disorder; likely ADHD and alcohol abuse Hospital course: 08/21: Continue current regimen and plans 08/22:Continue current regimen and plans 08/23 feeling much better; he says normal like he has good roots and shares how he remained calm, non-reactive during acute moment in [facility] [place] [place]. No manic symptoms and patient has remained in good behavioral and impulse control. Pt denies any SI at all; maintains that this was never an actual suicide attempt in the 1st voice. Pt reports feeling that he's likely getting ready for discharge, but still having trouble sleeping, feeling restless and not getting sound sleep. Discussed medication management as well as residual withdraw symptoms, combined with hx of working 3rd shift and pt understands insomnia may take longer to resolve. -discussed med and will try to use Clonidine before utilizing Zyprexa to avoid side-effect risks. -Discussed history of ADHD and patient was both diagnosed on stimulant medication throughout school; Focalin caused some emotional numbing but it did help him focus and be productive; agrees to trying Adderall to see if it is helpful at all although he understands he will on likely be discharged on this medication -discussed alcohol abuse, risks of relapse and treatment; patient said he is getting into AA; would like an IOP but knows that due to insurance this is not currently an option -Discussed insurance issue; discussed pending court case for OUI 08/24 stable; Plan: CV Q 15 minute checks Trial dose of Adderall 5 mg extended release daily Continue Prozac 10 mg daily for depression/ptsd Continue trazodone to 100 mg q.h.s. for insomnia; 50 mg did not do much Continue Clonidine 0.1 mg q.h.s. for insomnia P.r.n. Clonidine p.r.n. for anxiety P.r.n. Zyprexa 2.5 mg for mild to moderate agitation/5 mg for moderate to severe agitation Discontinuing CIWA; no withdrawal symptoms at all and it has been about 4 days since last drink Patient has Crohn's and is about due or overdue for Remicade; notified hospitalist Patient educated on: diagnosis and medication risk/benefits Informed Consent: understands Reason for continued inpatient stay Substantial Risk for: stable for discharge Time Spent With Patient Time: Total time managing care of this patient today ____ minutes.
[2023-08-24 11:41] LABS: Influenza A PCR NEGATIVE (Negative); Influenza B PCR NEGATIVE (Negative); Resp Syncy Virus RNA Qual PCR NEGATIVE (Negative); SARS COV2 PCR INHOUSE NEGATIVE (Negative)
[2023-08-24] MEDS: cloNIDine HCL 0.1 MG TABLET PO ×2 (14:18→19:36)
[2023-08-24 18:00] VITALS: BP 144/80; PULSE 75; RESP 18; TEMP 37.1; O2SAT 98
[2023-08-24] MEDS: Magnesium Hydrox/Alum Hydrox 30 ML ORAL.SUSP PO (18:08)
[2023-08-24] MEDS: OLANZapine 5 MG TABLET PO (18:25)
[2023-08-24] MEDS: hydrOXYzine HCL 25 MG TABLET PO (19:36)
[2023-08-25] MEDS: traZODone HCL 100 MG TABLET PO ×2 (00:02→23:20)
[2023-08-25] MEDS: Nicotine Polacrilex 2 MG GUM 4 MG BUCCAL ×8 (00:55→23:31)
[2023-08-25 09:25] VITALS: BP 110/53; PULSE 67; RESP 18; TEMP 36.4; O2SAT 96
[2023-08-25] MEDS: FLUoxetine HCl 10 MG CAPSULE PO (09:33)
[2023-08-25] MEDS: Multivitamin TABLET 1 TAB PO (09:33)
[2023-08-25] MEDS: Thiamine HCL 100 MG TABLET PO (09:33)
[2023-08-25] MEDS: Dextroamphetamine/Amphetamine XR 5 MG CAP.ER.24H PO (09:33)
[2023-08-25] MEDS: Folic Acid 1 MG TABLET PO (09:33)
--- NOTE | 2023-08-25 10:05 | HO.PSYCHPN ---
Subjective Subjective Date of Service: 08/25/23 Reason For Visit: Bipolar d/o, s/p Lorazepam OD, Alcohol use d/o Interim History: Met with patient; discussed with team Patient doing well, good mood, optimistic and feeling with a renewed outlook on his life. Patient has some anxiety about discharging, wearing whether not help remains stable or what it will be like without all the support however he also feels ready and understands that mental health and stability is a process with which he is eager to remain engaged. Patient is grateful he is able to attend IOP. Discussed medications again as well as diagnosis and touched upon borderline traits which resonate with patient. Patient feels he will be able to remain sober and plans to attend AA. There was an incident on the unit where a vape pen was passed between patient's; patient admitted that he did pass it between 1 patient to another but denies having used it at all. Mental Status Exam Mental Status Exam Narrative: Pt is alert and oriented; behavior is cooperative, friendly and calm; patient is not in distress; dressed in casual attire, well groomed, clean shaven; mood is described as good and affect congruent, calm; eye contact appropriate; Speech is normal rate, volume and prosody and not pressured; no psychomotor agitation/retardation present; thought process is organized and goal directed; Thought content is on current and future treatment; court case; otherwise pertinent to relevant topics and without any delusional content, paranoid ideations or grandiosity; denies any SI/HI. There is no evidence of perceptual disturbance. Patients insight and judgment fair Diagnostics Vital Signs (24Hr): Vital Signs - 24 hr 08/24/23 18:00 Temperature 98.7 F Pulse Rate 75 Respiratory Rate 18 Blood Pressure 144/80 H Pulse Oximetry 98 Oxygen Delivery Method Room Air BMI result Body Mass Index 33.0 Labs 08/20/23 08:37 Labs: Laboratory Results - last 48 hr 08/24/23 10:24 Influenza Type A (PCR) NEGATIVE Influenza Type B (PCR) NEGATIVE RSV RNA Qual (PCR) NEGATIVE SARS-CoV-2 RNA (RT-PCR) NEGATIVE Medications Medications Current Medications Acetaminophen (Acetaminophen 325 Mg Tablet) 650 mg PO Q6H PRN PRN Reason: Headache/Pain Mild Scale (1-3) Last Admin: 08/21/23 17:58 Dose: 650 mg Al Hydroxide/Mg Hydroxide (Magnesium Hydrox/Alum Hydrox 30 Ml Oral.Susp) 30 ml PO Q6H PRN PRN Reason: Heartburn/Nausea Last Admin: 08/24/23 18:08 Dose: 30 ml Amphetamine/Dextroamphetamine (Dextroamphetamine/Amphetamine Xr 5 Mg Cap.Er.24h) 5 mg PO DAILY [facility] Last Admin: 08/25/23 09:33 Dose: 5 mg Clonidine HCl (Clonidine Hcl 0.1 Mg Tablet) 0.1 mg PO BEDTIME JANIYA; Protocol Last Admin: 08/24/23 19:36 Dose: 0.1 mg Clonidine HCl (Clonidine Hcl 0.1 Mg Tablet) 0.1 mg PO Q4H PRN; Protocol PRN Reason: mild anxiety (try first) Last Admin: 08/24/23 14:18 Dose: 0.1 mg Epinephrine (Epinephrine 1 Mg/Ml Vial) 0.3 mg SUBCUT ONCE PRN PRN Reason: allergic response Fluoxetine HCl (Fluoxetine Hcl 10 Mg Capsule) 10 mg PO DAILY [facility] Last Admin: 08/25/23 09:33 Dose: 10 mg Folic Acid (Folic Acid 1 Mg Tablet) 1 mg PO DAILY [facility] Last Admin: 08/25/23 09:33 Dose: 1 mg Hydroxyzine HCl (Hydroxyzine Hcl 25 Mg Tablet) 25 mg PO Q6H PRN PRN Reason: Anxiety Last Admin: 08/24/23 19:36 Dose: 25 mg Ibuprofen (Ibuprofen 400 Mg Tablet) 400 mg PO Q6H PRN PRN Reason: Pain, Mild (Pain Scale 1-3) Magnesium Hydroxide (Milk Of Magnesia 30 Ml Oral.Susp) 30 ml PO DAILY PRN PRN Reason: Constipation Multi-Ingred Cream/Lotion/Oil/Oint (Mineral Oil/Petrolatum,White 106 Gm Tube) 1 appl TOPICAL TID PRN; Protocol PRN Reason: dry skin Multivitamins/Vitamin C (Multivitamin Tablet) 1 tab PO DAILY [facility] Last Admin: 08/25/23 09:33 Dose: 1 tab Nicotine Polacrilex (Nicotine Polacrilex 2 Mg Gum) 4 mg BUCCAL Q2H PRN PRN Reason: Nicotine Cravings Last Admin: 08/25/23 10:05 Dose: 4 mg Olanzapine (Olanzapine 2.5 Mg Tablet) 2.5 mg PO Q6H PRN PRN Reason: mild agitation Last Admin: 08/22/23 12:48 Dose: 2.5 mg Olanzapine (Olanzapine 5 Mg Tablet) 5 mg PO TID PRN PRN Reason: moderate to severe anxiety Last Admin: 08/24/23 18:25 Dose: 5 mg Thiamine HCl (Thiamine Hcl 100 Mg Tablet) 100 mg PO DAILY JANIYA Last Admin: 08/25/23 09:33 Dose: 100 mg Trazodone HCl (Trazodone Hcl 100 Mg Tablet) 100 mg PO BEDTIME PRN PRN Reason: Insomnia Last Admin: 08/25/23 00:02 Dose: 100 mg Allergies Allergies Allergy/AdvReac Type Severity Reaction Status Date / Time Sulfa (Sulfonamide Allergy Unknown Verified 02/08/22 09:16 Antibiotics) tree nut Allergy Hives Verified 03/11/22 22:34 Assessment & Plan Assessment & Plan (1) MDD (major depressive disorder), recurrent severe, without psychosis: Status: Acute Code(s): F33.2 - Major depressive disorder, recurrent severe without psychotic features (2) PTSD (post-traumatic stress disorder): Status: Acute Code(s): F43.10 - Post-traumatic stress disorder, unspecified (3) Alcohol use disorder: Status: Acute Code(s): F10.90 - Alcohol use, unspecified, uncomplicated Plan HPI: Pt is a 23 yo male with hx of Crohn's disease, depression, significant trauma history and PTSD, alcohol abuse, who presents for depression and intentional overdose and the face of untreated psychiatric illness and alcohol abuse. Patient reports that he has been quite depressed over the past several months, low energy, diminished interest, guilty feelings, struggle with concentration, decreased appetite and trouble sleeping. 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 Patient has Crohn's disease and last week, he lost his insurance because he was making just a little bit too much money to qualify; he reduced his hours and has been trying to appeal insurance but this has caused him much stress. Patient when out drinking that night, and driving home from the bar was pulled over and received an OUI. The following day, he felt overwhelmed with worry, feeling like he'll never get out from under the stress, financial strain and so impulsively took 4 Ativan 1 mg tabs. Patient said this was not really an attempt to be , but just to disconnect from reality for while. Patient said he texted friends prior to taking the Ativan and someone called 911. At the emergency room he does not remember much but apparently he was agitated and needed chemical restraint. Patient said he was once diagnosed with bipolar disorder however it was when he was 20 years old and manic behavior started immediately upon learning that his mother was murdered, or patient was crying incessantly and trying to call the police and newspapers. Patient denies any manic or hypomanic symptoms or behaviors/episodes otherwise. Patient says he very much wants help and is open to medication management Impression/plan: Patient has had long history of various traumas including being born while his mother was addicted to opiates and needing to be removed from her when he was 12 years old; she was murdered when he was 20 years old. The fact that the case is still ongoing is a consistent trigger. Patient has had much depression for years; he says he has never really taking any medications prescribed to him and is not sure why but just seems to forget. He carried a diagnosis of bipolar disorder however prior to this isolated supposed manic episode, patient was calm, without any manic symptoms and symptoms started immediately upon finding out his mother was murdered. No other such behaviors episodes since. Given this report, other seems a low likelihood that patient has bipolar disorder and thus first-line treatment for depression and PTSD is an SSRI. Process Chemist discussed risks/side effects of Prozac (and trazodone), including potential for triggering manic episode which patient understood, asked questions about and with which wants to continue. Discussed alcoholism and patient understands that it is more serious than he has been admitting and that it is hindering any progress in treatment. -diagnosis of MDD, PTSD with a rule out for reactive attachment disorder; likely ADHD and alcohol abuse Hospital course: 08/21: Continue current regimen and plans 08/22:Continue current regimen and plans 08/23 feeling much better; he says normal like he has good roots and shares how he remained calm, non-reactive during acute moment in [place]. No manic symptoms and patient has remained in good behavioral and impulse control. Pt denies any SI at all; maintains that this was never an actual suicide attempt in the 1st voice. Pt reports feeling that he's likely getting ready for discharge, but still having trouble sleeping, feeling restless and not getting sound sleep. Discussed medication management as well as residual withdraw symptoms, combined with hx of working 3rd shift and pt understands insomnia may take longer to resolve. -discussed med and will try to use Clonidine before utilizing Zyprexa to avoid side-effect risks. -Discussed history of ADHD and patient was both diagnosed on stimulant medication throughout school; Focalin caused some emotional numbing but it did help him focus and be productive; agrees to trying Adderall to see if it is helpful at all although he understands he will on likely be discharged on this medication -discussed alcohol abuse, risks of relapse and treatment; patient said he is getting into AA; would like an IOP but knows that due to insurance this is not currently an option -Discussed insurance issue; discussed pending court case for OUI 08/24 stable; 08/25 Patient doing well, good mood, optimistic and feeling with a renewed outlook on his life. Patient has some anxiety about discharging, wearing whether not help remains stable or what it will be like without all the support however he also feels ready and understands that mental health and stability is a process with which he is eager to remain engaged. Patient is grateful he is able to attend IOP. Discussed medications again as well as diagnosis and touched upon borderline traits which resonate with patient. Patient feels he will be able to remain sober and plans to attend AA. There was an incident on the unit where a vape pen was passed between patient's; patient admitted that he did pass it between 1 patient to another but denies having used it at all. Discussed Adderall which patient finds very beneficial and without the side effects of Focalin. He has a diagnosis of ADHD and has been on stimulants throughout school. While stimulant prescriptions carry some risk as they are abusable patient has no history of cocaine/stimulant abuse and it is job specification writer's opinion that since patient has been on stimulant medication before and this medication is helpful for impulse control the potential benefits outweigh the risks and job specification writer agrees to continue this medication. While patient remains vulnerable to relapse and mood dysregulation, this is a chronic issue which he understands and is actively addressing and will not clear up with longer stay on the unit. He is without any SI, in a good mood hopeful and with outpatient services established. Patient is not in imminent risk for harm to self or others and appropriate to return to the community for treatment. Plan: CV Q 15 minute checks Trial dose of Adderall 5 mg extended release daily Continue Prozac 10 mg daily for depression/ptsd Continue trazodone to 100 mg q.h.s. for insomnia; 50 mg did not do much Continue Clonidine 0.1 mg q.h.s. for insomnia P.r.n. Clonidine p.r.n. for anxiety P.r.n. Zyprexa 2.5 mg for mild to moderate agitation/5 mg for moderate to severe agitation Discontinuing CIWA; no withdrawal symptoms at all and it has been about 4 days since last drink Patient has Crohn's and is about due or overdue for Remicade; notified hospitalist Patient educated on: diagnosis, medication risk/benefits, substance abuse and therapeutic strategies Informed Consent: understands Reason for continued inpatient stay Substantial Risk for: stable for discharge Time Spent With Patient Time: Total time managing care of this patient today ____ minutes.
[2023-08-25] MEDS: Magnesium Hydrox/Alum Hydrox 30 ML ORAL.SUSP PO (13:25)
[2023-08-25] MEDS: cloNIDine HCL 0.1 MG TABLET PO ×2 (14:06→23:21)
[2023-08-25] MEDS: OLANZapine 5 MG TABLET PO ×2 (16:15→22:12)
[2023-08-25 23:20] VITALS: BP 133/76; PULSE 93; TEMP 36.3
[2023-08-25] MEDS: OLANZapine 2.5 MG TABLET PO (23:32)
[2023-08-26] MEDS: traZODone HCL 100 MG TABLET PO (00:34)
[2023-08-26] MEDS: Multivitamin TABLET 1 TAB PO (08:12)
[2023-08-26] MEDS: Dextroamphetamine/Amphetamine XR 5 MG CAP.ER.24H PO (08:12)
[2023-08-26] MEDS: Thiamine HCL 100 MG TABLET PO (08:12)
[2023-08-26] MEDS: Folic Acid 1 MG TABLET PO (08:12)
[2023-08-26] MEDS: FLUoxetine HCl 10 MG CAPSULE PO (08:12)
[2023-08-26] MEDS: Nicotine Polacrilex 2 MG GUM 4 MG BUCCAL ×2 (08:18→11:22)
[2023-08-26 08:27] VITALS: BP 108/66; PULSE 67; RESP 18; TEMP 36.4; O2SAT 98
--- NOTE | 2023-08-26 08:55 | P.DS_ITS ---
DS: Providers Provider Date of Service: 08/26/23 Date of admission: 08/19/23 23:36 Date of discharge: 08/26/23 Primary care physician: Unknown Physician Attending physician on admission: Warren Jamison Consults: 08/20/23 00:26 Consult to Hospitalist Routine Comment: Consulting Provider: Hospitalist Reason For Exam: Transfer from [place] Attending physician on discharge: Warren Jamison DS: Diagnosis Discharge Diagnosis (1) MDD (major depressive disorder), recurrent severe, without psychosis: Status: Acute (2) PTSD (post-traumatic stress disorder): Status: Acute (3) Alcohol use disorder: Status: Acute DS: Medications Discharge Medications Home Medications: Previous Rx's Medication Instructions Recorded clonidine HCl 0.1 mg tablet 0.1 mg PO Q4H PRN anxiety/insomnia 08/25/23 30 days #90 tabs nicotine (polacrilex) 4 mg gum 4 mg buccal Q2H PRN nicotine 08/25/23 cravings 30 days #100 ea dextroamphetamine-amphetamine ER 5 5 mg PO DAILY 30 days #30 caps 08/26/23 mg 24hr capsule,extend release fluoxetine 10 mg capsule 10 mg PO DAILY 30 days #30 caps 08/26/23 hydroxyzine HCl 25 mg tablet 25 mg PO Q6H PRN Anxiety 30 days 08/26/23 #90 tabs olanzapine 5 mg tablet 5 mg PO BID PRN moderate to severe 08/26/23 anxiety 30 days #60 tabs trazodone 100 mg tablet 100 mg PO BEDTIME PRN Insomnia 30 08/26/23 days #30 tabs Mental Status Exam Mental Status Exam Narrative: Pt is alert and oriented; behavior is cooperative, friendly and calm; patient is not in distress; dressed in casual attire, well groomed, clean shaven; mood is described as good and affect congruent, calm; eye contact appropriate; Speech is normal rate, volume and prosody and not pressured; no psychomotor agitation/retardation present; thought process is organized and goal directed; Thought content is on current and future treatment; court case; otherwise pertinent to relevant topics and without any delusional content, paranoid ideations or grandiosity; denies any SI/HI. There is no evidence of perceptual disturbance. Patients insight and judgment fair Data Data Completed and Pending Completed studies during hospitalization [Text1]: 08/20/23 08/24/23 08:37 10:24 Sodium 140 Potassium 4.4 D Chloride 105 Carbon Dioxide 29 Anion Gap 10 L BUN 11 Creatinine 0.84 Estim Creat Clear Calc 143.4 Estimated GFR > 60 Fasting Glucose 98 Estimat Average Glucose 100 Hemoglobin A1c % 5.1 Calcium 9.7 Magnesium 2.3 Total Bilirubin 0.6 AST 25 ALT 33 Alkaline Phosphatase 49 Total Protein 7.2 Albumin 4.5 Triglycerides 191 H Cholesterol 197 LDL Cholesterol, Calc 118 H HDL Cholesterol 41 Vitamin B12 1265 H Folate 14.5 TSH 2.24 Free T4 1.04 Influenza Type A (PCR) NEGATIVE Influenza Type B (PCR) NEGATIVE RSV RNA Qual (PCR) NEGATIVE SARS-CoV-2 RNA (RT-PCR) NEGATIVE DS: Summary Hospital Course Hospital Course: HPI: Pt is a 23 yo male with hx of Crohn's disease, depression, significant trauma history and PTSD, alcohol abuse, who presents for depression and intentional overdose and the face of untreated psychiatric illness and alcohol abuse. Patient reports that he has been quite depressed over the past several months, low energy, diminished interest, guilty feelings, struggle with concentration, decreased appetite and trouble sleeping. 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 Patient has Crohn's disease and last week, he lost his insurance because he was making just a little bit too much money to qualify; he reduced his hours and has been trying to appeal insurance but this has caused him much stress. Patient when out drinking that night, and driving home from the bar was pulled over and received an OUI. The following day, he felt overwhelmed with worry, feeling like he'll never get out from under the stress, financial strain and so impulsively took 4 Ativan 1 mg tabs. Patient said this was not really an attempt to be , but just to disconnect from reality for while. Patient said he texted friends prior to taking the Ativan and someone called 911. At the emergency room he does not remember much but apparently he was agitated and needed chemical restraint. Patient said he was once diagnosed with bipolar disorder however it was when he was 20 years old and manic behavior started immediately upon learning that his mother was murdered, or patient was crying incessantly and trying to call the police and newspapers. Patient denies any manic or hypomanic symptoms or behaviors/episodes otherwise. Patient says he very much wants help and is open to medication management Impression/plan: Patient has had long history of various traumas including being born while his mother was addicted to opiates and needing to be removed from her when he was 12 years old; she was murdered when he was 20 years old. The fact that the case is still ongoing is a consistent trigger. Patient has had much depression for years; he says he has never really taking any medications prescribed to him and is not sure why but just seems to forget. He carried a diagnosis of bipolar d isorder however prior to this isolated supposed manic episode, patient was calm, without any manic symptoms and symptoms started immediately upon finding out his mother was murdered. No other such behaviors episodes since. Given this report, other seems a low likelihood that patient has bipolar disorder and thus first-line treatment for depression and PTSD is an SSRI. Lute Packer Or Applier discussed risks/side effects of Prozac (and trazodone), including potential for triggering manic episode which patient understood, asked questions about and with which wants to continue. Discussed alcoholism and patient understands that it is more serious than he has been admitting and that it is hindering any progress in treatment. -diagnosis of MDD, PTSD with a rule out for reactive attachment disorder; history of being diagnosed with ADHD; alcohol use disorder. Some borderline traits Hospital course: On admission, patient was friendly, calm and cooperative in good behavioral and impulse control. He immediately wanted to explain his behaviors in the emergency room from the sending hospital, saying that he was out of it is fuzzy on the details and that his aggressive behavior is completely uncharacteristic and that he has never been assaultive before; he also assures that none of this behavior will be present during this admission. Throughout the admission, patient remained engaged in treatment, going to groups, openly discussing his issues, and continually striving to be self aware and take responsibility for his actions. He discussed some history of trauma though did not want to get into details but agreed he needs to give therapy more attempts. Lute Packer Or Applier diagnosed with MDD, PTSD and some borderline traits and for now, ruled out bipolar disorder (patient's only ?manic episode ?was when he was a teenager and was immediately triggered the moment he found out his mother was murdered). Patient was started on Prozac to good effect; discussed risks/side effects. 08/23 feeling much better; he says normal like he has good roots and shares how he remained calm, non-reactive during acute moment in [place]. No manic symptoms and patient has remained in good behavioral and impulse control. Pt denies any SI at all; maintains that this was never an actual suicide attempt in the 1st voice. Pt reports feeling that he's likely getting ready for discharge, but still having trouble sleeping, feeling restless and not getting sound sleep. Discussed medication management as well as residual withdraw symptoms, combined with hx of working 3rd shift and pt understands insomnia may take longer to resolve. -discussed med and will try to use Clonidine before utilizing Zyprexa to avoid side-effect risks. -Discussed history of ADHD and patient was both diagnosed on stimulant medication throughout school; Focalin caused some emotional numbing but it did help him focus and be productive; agrees to trying Adderall to see if it is helpful at all although he understands he will on likely be discharged on this medication -discussed alcohol abuse, risks of relapse and treatment; patient said he is getting into AA; would like an IOP but knows that due to insurance this is not currently an option -Discussed insurance issue; discussed pending court case for OUI 08/25 Patient doing well, good mood, optimistic and feeling with a renewed outlook on his life. Patient has some anxiety about discharging, wearing whether not help remains stable or what it will be like without all the support however he also feels ready and understands that mental health and stability is a process with which he is eager to remain engaged. Patient is grateful he is able to attend IOP. Discussed medications again as well as diagnosis and touched upon borderline traits which resonate with patient. Patient feels he will be able to remain sober and plans to attend AA. There was an incident on the unit where a vape pen was passed between patient's; patient admitted that he did pass it between 1 patient to another but denies having used it at all. Discussed Adderall which patient finds very beneficial and without the side effects of Focalin. He has a diagnosis of ADHD and has been on stimulants throughout school. While stimulant prescriptions carry some risk as they are abusable patient has no history of cocaine/stimulant abuse and it is blog writer's opinion that since patient has been on stimulant medication before and this medication is helpful for impulse control the potential benefits outweigh the risks and blog writer agrees to continue this medication. While patient remains vulnerable to relapse and mood dysregulation, this is a chronic issue which he understands and is actively addressing and will not clear up with longer stay on the unit. He is without any SI, in a good mood hopeful and with outpatient services established. Patient is not in imminent risk for harm to self or others and appropriate to return to the community for treatment. Medications Prozac 10 mg daily for depression/ptsd trazodone to 100 mg q.h.s. for insomni Clonidine 0.1 mg q.h.s. for anxiety/insomnia Zyprexa 5 mg p.r.n. for agitation Time spent discussing smoking cessation with patient: 3 to 10 minutes Status at Discharge Functional status at discharge: independent ambulation Overall status at discharge: patient is back to baseline Time Spent with Patient Time attestation: Total time managing care of this patient today ____ minutes. Time spent: Less than 30 minutes Discharge Plan Discharge Anticipated Discharge Date/Time: 08/26/23 11:00 Patient Disposition: Home, Self-Care Discharge Diagnosis: Mdd, recurrent, severe without psychosis, in full remission Referrals: Therapy: Shivani Houser ([facility]) [Other] - 08/30/23 10:30 am (Appointment is in person, at the office in [place]) Psych Prescriber: Evans Jones ([facility]) [Other] - 09/30/23 1:00 pm (Telehealth-Evans will call your phone at the appointment time, you may also get an email with instructions to do a video call, if you don't expect a phone call ) Psych Prescriber: Evans Jones ([facility]) [Other] - 10/28/23 11:00 am (Telehealth ) Kelly Bradley MD [Physician] - 1 Week (OFFICE WILL CALL PT. WITH FOLLOW-UP APPOINTMENT) Discharge Medications: New nicotine (polacrilex) 4 mg gum 4 mg buccal Q2H PRN (Reason: nicotine cravings) 30 Days Qty: 100 0RF clonidine HCl 0.1 mg Tablet 0.1 mg PO Q4H PRN (Reason: anxiety/insomnia) 30 Days Qty: 90 1RF Protocol: Hold for SBP< HOLD for SBP < : 90 dextroamphetamine-amphetamine 5 mg Capsule,Extended Release 24hr 5 mg PO DAILY 30 Days Qty: 30 0RF Rx Instructions: Partial Fill upon patient request. fluoxetine 10 mg Capsule 10 mg PO DAILY 30 Days Qty: 30 1RF hydroxyzine HCl 25 mg Tablet 25 mg PO Q6H PRN (Reason: Anxiety) 30 Days Qty: 90 0RF olanzapine 5 mg Tablet 5 mg PO BID PRN (Reason: moderate to severe anxiety) 30 Days Qty: 60 0RF trazodone 100 mg Tablet 100 mg PO BEDTIME PRN (Reason: Insomnia) 30 Days Qty: 30 0RF Discontinued ondansetron 4 mg tablet,disintegrating 4 mg PO Q8H 3 Days Qty: 9 0RF ibuprofen 400 mg Tablet 400 mg PO Q6H PRN (Reason: Pain) lorazepam 1 mg tablet 2 mg PO BID PRN (Reason: anxiety) epinephrine [EpiPen 2-Roderick] 0.3 mg/0.3 mL Auto-Injector aripiprazole 5 mg Tablet 5 mg PO DAILY eszopiclone 2 mg tablet 2 mg PO BEDTIME Discharge Orders: Discharge Order (Routine); Ordered 08/27/23 Ordered By: Warren Jamison Diet: Regular diet Activity on Discharge: As tolerated Stand Alone Forms: Patient Portal Discharge page Care Plan Goals: Maintain mood and safe behaviors Take medications as prescribed Continue to pursue sobriety Practice coping skills Continue with outpatient providers and reach out to them as needed Health Concerns: Mood stability and behaviors Sobriety Crohn's disease Plan of Treatment: Follow up with your PCP, psychiatric provider and other outpatient providers regarding above concerns Take medications as prescribed (of note, pt experienced adderall as more helpful and with less side-effects then focalin) Assessment: Risk assessment at time of discharge:? Patient was interviewed prior to discharge and found to be fully oriented and without any SI or HI. Patient has improved insight and judgment and wants to continue treatment. Patient is not in imminent risk of harm to self or others and has a safety plan that includes presenting to the closest ER or calling 911 if feeling unsafe.? Patient has been observed closely by nursing and unit staff throughout admission; patient has not engaged in any behaviors that suggest dangerousness to self or others and has demonstrated appropriate behaviors and impulse control
[2023-08-26 09:41] LABS: Influenza A PCR NEGATIVE (Negative); Influenza B PCR NEGATIVE (Negative); Resp Syncy Virus RNA Qual PCR NEGATIVE (Negative); SARS COV2 PCR INHOUSE NEGATIVE (Negative)
[2023-08-26] MEDS: OLANZapine 2.5 MG TABLET PO (10:07)
[2023-08-26 10:28] VITALS: BMI 34.4
[2023-08-26] MEDS: OLANZapine 5 MG TABLET PO (11:04)
== END 2023-08-26 11:43 | disposition home or self-care (01) | DRG 885 ==
PROVIDERS: Clinical Nurse Specialist Psychiatric/Mental Health, Adult; Admitting Provider Psychiatry & Neurology Psychiatry; Visit Provider Psychiatry & Neurology Psychiatry
DX: F33.2 Major depressive disorder, recurrent severe without psychotic features (principal); K50.90 Crohn's disease, unspecified, without complications; F43.10 Post-traumatic stress disorder, unspecified; Z23 Encounter for immunization; Z20.822 Contact with and (suspected) exposure to COVID-19; F10.10 Alcohol abuse, uncomplicated; Z79.620 Long term (current) use of immunosuppressive biologic; Z79.899 Other long term (current) drug therapy
CPT/HCPCS: 0241U; 36415; 80053; 80061; 82607; 82746; 83036; 83735; 84439; 84443; 90686

== ENCOUNTER → 2023-08-19 23:36 | Outpatient (BNV) | payer MEDICAID, SELFPAY | PROVIDERS: Admitting Provider Psychiatry & Neurology Psychiatry; Visit Provider Student in an Organized Health Care Education/Training Program | DX: Z02.2 Encounter for examination for admission to residential institution (principal) | CPT/HCPCS: 99499 ==

== ENCOUNTER → 2023-08-19 23:36 | Outpatient (BNV) | payer MEDICAID, OTHER, SELFPAY | PROVIDERS: Admitting Provider Psychiatry & Neurology Psychiatry; Visit Provider Psychiatry & Neurology Psychiatry | DX: F33.2 Major depressive disorder, recurrent severe without psychotic features (principal); F43.11 Post-traumatic stress disorder, acute; F10.90 Alcohol use, unspecified, uncomplicated | CPT/HCPCS: 90792; 99231; 99232; 99238 ==

== ENCOUNTER 2023-08-30 14:23 | Outpatient (AMB) | payer MEDICAID, SELFPAY ==
--- NOTE | 2023-08-30 14:25 | A.OFFVIS_ITS ---
Intake Vital Signs 08/30/23 14:33 BP 130/74 Blood Pressure Location Lt radial Position Sitting Pulse 99 Pulse Source Pulse Oximeter Pulse Oximetry (%) 96 Oxygen Delivery Method Room Air Intake Visit Reasons: MAT Intake Intake Note: THE PATIENT PRESENTS FOR A MAT INTAKE Art Conservator Required: No Allergies Sulfa (Sulfonamide Antibiotics) Allergy (Verified 08/30/23 14:34) Unknown tree nut Allergy (Verified 08/30/23 14:34) Hives HPI MAT Intake HPI Details Patient presents for intake and evaluation of alcohol use Recently admitted to unit for OD on Lorazepam and Abilify No alcohol since August 16 --following OUI arrest. 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 At time of visit patient did not appear edematous anywhere. [facility] Medical History (Updated 08/20/23 @ 19:59 by CHRISTOPH Izquierdo) Alcohol use disorder PTSD (post-traumatic stress disorder) MDD (major depressive disorder), recurrent severe, without psychosis Social History Household Members: None Housing: Apartment Do you presently have visiting nurse or other home services: No Patient Tobacco Use Status: Current everyday Tobacco user e-Cigarette/Vaping Use: Currently Using Substance Use Type: Marijuana service: No Sexual orientation: Did not discuss Review of Systems Const Reports as per HPI Physical Exam Vital Signs: Last Vital Signs Pulse 99 08/30/23 14:33 BP 130/74 08/30/23 14:33 Pulse Ox 96 08/30/23 14:33 Oxygen Delivery Method Room Air 08/30/23 14:33 Const General: cooperative, healthy appearing and no acute distress Orientation/consciousness: patient oriented x3 Neuro General: patient oriented x3 Psych Appearance: well kempt Speech and movement: Clear speech present Affect: normal affect Attitude: cooperative Thought process: Normal thought process present Thought content: Normal thought content present Assessment & Plan Assessment & Plan (1) Alcohol use disorder: Code(s): F10.90 - Alcohol use, unspecified, uncomplicated Plan: * agreeable to naltrexone tirial --discussed medication, goals of treatment, side effects and dosing * campral ordered as well just in case naltrexone was out of stock at [facility] due to recent shortage * risk reduction discussion * follow up as scheduled Medications: New acamprosate 666 mg (2 x 333 mg) PO TID 90 tabs 0RF naltrexone take 1/2 tab daily for for 3 days then increase to one full tab daily 50 mg PO DAILY 30 tabs 1RF Coding Level of Care Code New Pt Level 4 (77401) Diagnoses Alcohol use disorder F10.90
[2023-08-30 14:33] VITALS: BP 130/74; PULSE 99; O2SAT 96
== END 2023-08-30 15:28 | disposition home or self-care (01) ==
PROVIDERS: Visit Provider Nurse Practitioner Psychiatric/Mental Health
DX: F10.90 Alcohol use, unspecified, uncomplicated (principal)
CPT/HCPCS: 99204

== ENCOUNTER → 2023-08-30 14:23 | Outpatient (BNVA) | payer MEDICAID, SELFPAY | PROVIDERS: Visit Provider Nurse Practitioner Psychiatric/Mental Health | DX: F10.20 Alcohol dependence, uncomplicated (principal) | CPT/HCPCS: 99202 ==

== ENCOUNTER 2023-09-15 13:13 | Outpatient (AMB) | payer MEDICAID, SELFPAY ==
--- NOTE | 2023-09-15 13:17 | MHC.AM.SUB ---
Intake Vital Signs 09/15/23 13:23 BP 124/70 Blood Pressure Location Lt radial Position Sitting Pulse 76 Pulse Source Pulse Oximeter Pulse Oximetry (%) 96 Oxygen Delivery Method Room Air Intake Visit Reasons: MAT Visit Intake Note: the patient presents for a mat visit Grants Director Required: No Allergies Sulfa (Sulfonamide Antibiotics) Allergy (Verified 09/15/23 13:26) Unknown tree nut Allergy (Verified 09/15/23 13:26) Hives Do you need a note to return to daycare/school/sports/work: No HPI MAT Visit HPI Details Patient presents for AUD follow up Has restarted Prozac and clonidine Recently saw PCP in response to facial swelling and concern that it was related to new medications started during admission. Restarted above medications in response to PCP visit. This publications writer viewed PCP note via patient phone on the portal. PCP noted that patient has history of idiopathic angioedema. Has been having some cravings for ETOH Discussed coping strategies. Has been attending meetings when he can. Will start IOP on October 05. Infusion scheduled for Wednesday [facility] Medical History (Updated 09/03/23 @ 00:03 by Sofia Li) Alcohol use disorder PTSD (post-traumatic stress disorder) MDD (major depressive disorder), recurrent severe, without psychosis Social History Household Members: None Housing: Apartment Do you presently have visiting nurse or other home services: No Patient Tobacco Use Status: Current everyday Tobacco user e-Cigarette/Vaping Use: Currently Using Substance Use Type: Marijuana service: No Sexual orientation: Did not discuss Review of Systems Const Reports as per HPI, Reports increased appetite and Reports weight gain Psych Reports anxiety Physical Exam Vital Signs: Last Vital Signs Pulse 76 09/15/23 13:23 BP 124/70 09/15/23 13:23 Pulse Ox 96 09/15/23 13:23 Oxygen Delivery Method Room Air 09/15/23 13:23 Const General: cooperative, healthy appearing and no acute distress Orientation/consciousness: patient oriented x3 Neuro General: patient oriented x3 Psych Appearance: well kempt Speech and movement: Clear speech present Affect: normal affect Attitude: cooperative Thought process: Normal thought process present Thought content: Normal thought content present Assessment & Plan Assessment & Plan (1) Alcohol use disorder: Code(s): F10.90 - Alcohol use, unspecified, uncomplicated Plan: will start naltrexone --1/2 tab daily for 3 days RN to follow up Sunday 09/17 provided patient with written plan and medication sheet to document medications--offered patient to bring medications in and have RN assist with organizing follow up 2 weeks Coding Level of Care Code Est Pt Level 4 (15700) Diagnoses Alcohol use disorder F10.90
[2023-09-15 13:23] VITALS: BP 124/70; PULSE 76; O2SAT 96
== END 2023-09-15 14:01 | disposition home or self-care (01) ==
PROVIDERS: Visit Provider Nurse Practitioner Psychiatric/Mental Health
DX: F10.90 Alcohol use, unspecified, uncomplicated (principal)
CPT/HCPCS: 99214

== ENCOUNTER → 2023-09-15 13:13 | Outpatient (BNVA) | payer MEDICAID, SELFPAY | PROVIDERS: Visit Provider Nurse Practitioner Psychiatric/Mental Health | DX: F10.20 Alcohol dependence, uncomplicated (principal) | CPT/HCPCS: 99212 ==

== ENCOUNTER 2023-10-01 13:14 | Outpatient (AMB) | payer MEDICAID, SELFPAY ==
--- NOTE | 2023-10-01 13:22 | A.OFFVISCC_ITS ---
Intake Vital Signs 10/01/23 13:28 BP 118/74 Blood Pressure Location Lt radial Position Sitting Pulse 66 Pulse Source Pulse Oximeter Pulse Oximetry (%) 96 Oxygen Delivery Method Room Air Intake Visit Reasons: MAT Visit Intake Note: the patient presents for a mat visit Piano Bench Assembler Required: No Allergies Sulfa (Sulfonamide Antibiotics) Allergy (Verified 10/01/23 13:22) Unknown tree nut Allergy (Verified 10/01/23 13:22) Hives Do you need a note to return to daycare/school/sports/work: No HPI MAT Visit HPI Details Patient presents for AUD treatment follow up Taking naltrexone every morning Feeling like he may need another dose in the afternoon--this is when he has downtime and cravings increase increasing anxiety had court -lost license for 45 days and probation for a year [facility], has only been there once he is taking the following medications daily prozac naltrexone hyroxyzine clonidine PFS Medical History (Updated 09/03/23 @ 00:03 by Sofia Li) Alcohol use disorder PTSD (post-traumatic stress disorder) MDD (major depressive disorder), recurrent severe, without psychosis Social History Household Members: None Housing: Apartment Do you presently have visiting nurse or other home services: No Patient Tobacco Use Status: Current everyday Tobacco user e-Cigarette/Vaping Use: Currently Using Substance Use Type: Marijuana service: No Sexual orientation: Did not discuss Review of Systems Const Reports as per HPI and Reports no additional complaints Physical Exam Vital Signs: Last Vital Signs Pulse 66 10/01/23 13:28 BP 118/74 10/01/23 13:28 Pulse Ox 96 10/01/23 13:28 Oxygen Delivery Method Room Air 10/01/23 13:28 Const General: cooperative, healthy appearing and no acute distress Orientation/consciousness: patient oriented x3 Neuro General: patient oriented x3 Psych Appearance: well kempt Speech and movement: Clear speech present Affect: normal affect Attitude: cooperative Thought process: Normal thought process present Thought content: Normal thought content present Assessment & Plan Assessment & Plan (1) Alcohol use disorder: Code(s): F10.90 - Alcohol use, unspecified, uncomplicated Plan: * continue Naltrexone * interested in Vivitrol--ordered * follow up 2 weeks Medications: New naltrexone microspheres ER (Vivitrol) 380 mg IM Q4W 1 ea 5RF Coding Level of Care Code Est Pt Level 3 (36347) Diagnoses Alcohol use disorder F10.90
[2023-10-01 13:28] VITALS: BP 118/74; PULSE 66; O2SAT 96
== END 2023-10-01 14:06 | disposition home or self-care (01) ==
PROVIDERS: Visit Provider Nurse Practitioner Psychiatric/Mental Health
DX: F10.90 Alcohol use, unspecified, uncomplicated (principal)
CPT/HCPCS: 99213

== ENCOUNTER → 2023-10-01 13:14 | Outpatient (BNVA) | payer MEDICAID, SELFPAY | PROVIDERS: Visit Provider Nurse Practitioner Psychiatric/Mental Health | DX: F10.20 Alcohol dependence, uncomplicated (principal) | CPT/HCPCS: 99212 ==

== ENCOUNTER 2023-10-15 13:51 | Outpatient (AMB) | payer MEDICAID, SELFPAY ==
--- NOTE | 2023-10-15 13:52 | MHC.AM.SUB ---
Intake Vital Signs 10/15/23 13:57 BP 110/70 Blood Pressure Location Lt radial Position Sitting Pulse 74 Pulse Source Pulse Oximeter Pulse Oximetry (%) 98 Oxygen Delivery Method Room Air Intake Visit Reasons: MAT Visit/Liliam Inj Intake Note: The patient presents for a liliam inj Pipelines Superintendent Required: No Allergies Sulfa (Sulfonamide Antibiotics) Allergy (Verified 10/15/23 13:59) Unknown tree nut Allergy (Verified 10/15/23 13:59) Hives Do you need a note to return to daycare/school/sports/work: No HPI MAT Visit/Liliam Inj HPI Details Patient presents for AUD treatment follow up Scheduled for first Vivitrol injection today Questions answered and additional education provided Saw psychiatric provider yesterday for the 1st time--medication list updated Started on diphenhydramine for sleep New job. Bright affect, future oriented [facility] Medical History (Updated 09/03/23 @ 00:03 by Sofia Li) Alcohol use disorder PTSD (post-traumatic stress disorder) MDD (major depressive disorder), recurrent severe, without psychosis Social History Household Members: None Housing: Apartment Do you presently have visiting nurse or other home services: No Patient Tobacco Use Status: Current everyday Tobacco user e-Cigarette/Vaping Use: Currently Using Substance Use Type: Marijuana service: No Sexual orientation: Did not discuss Review of Systems Const Reports as per HPI and Reports no additional complaints Physical Exam Vital Signs: Last Vital Signs Pulse 74 10/15/23 13:57 BP 110/70 10/15/23 13:57 Pulse Ox 98 10/15/23 13:57 Oxygen Delivery Method Room Air 10/15/23 13:57 Const General: cooperative, healthy appearing and no acute distress Orientation/consciousness: patient oriented x3 Neuro General: patient oriented x3 Psych Appearance: well kempt Speech and movement: Clear speech present Affect: normal affect Attitude: cooperative Thought process: Normal thought process present Thought content: Normal thought content present Office Meds Vivitrol 380 mg intramuscular suspension,extended release Performing Provider: Maranda Stokes CNP Performing Location: [facility] Administered by: Opal Turcios RN on 10/15/23 14:00 Dose Route Admin Location Dispensed Lot Number Expiration Date [facility] Storekeeper Helper 380 mg IM 380 mg 2023-1027T 01/10/26 94240-435-19 [employer] Comments: Patient tolerated injection well, was educated on side effects and he verbally agrees to reach out to [facility] with any concerns or questions. Assessment & Plan Assessment & Plan (1) Alcohol use disorder: Code(s): F10.90 - Alcohol use, unspecified, uncomplicated Plan: tolerated injection follow up 2 weeks questions answered Orders: Orders AMB Naltrexone Injection Patient Supplied 10/15/23 F10.90 - Alcohol use, unspecified, uncomplicated Medications: Discontinued clonidine HCl Discontinued Reason: Patient no longer taking 0.1 mg See Protocol PO Q4H 30 days PRN 90 tabs 1RF anxiety/insomnia trazodone Discontinued Reason: Patient no longer taking 100 mg PO BEDTIME 30 days PRN 30 tabs 0RF Insomnia olanzapine Discontinued Reason: Patient no longer taking 5 mg PO BID 30 days PRN 60 tabs 0RF moderate to severe anxiety acamprosate Discontinued Reason: Patient no longer taking 666 mg (2 x 333 mg) PO TID 90 tabs 0RF Coding Level of Care Code Est Pt Level 3 (40611) Diagnoses Alcohol use disorder F10.90
[2023-10-15 13:57] VITALS: BP 110/70; PULSE 74; O2SAT 98
== END 2023-10-15 14:45 | disposition home or self-care (01) ==
PROVIDERS: Visit Provider Nurse Practitioner Psychiatric/Mental Health
DX: F10.90 Alcohol use, unspecified, uncomplicated (principal)
CPT/HCPCS: 99213

== ENCOUNTER → 2023-10-15 13:51 | Outpatient (BNVA) | payer MEDICAID, SELFPAY | PROVIDERS: Visit Provider Nurse Practitioner Psychiatric/Mental Health | DX: F10.20 Alcohol dependence, uncomplicated (principal); Z79.899 Other long term (current) drug therapy | CPT/HCPCS: 96372; 99212; J2315 ==

== ENCOUNTER 2023-10-28 09:49 | Outpatient (AMB) | payer MEDICAID, SELFPAY ==
--- NOTE | 2023-10-28 09:50 | MHC.AM.SUB ---
Intake Intake Visit Reasons: Liliam follow up Allergies Sulfa (Sulfonamide Antibiotics) Allergy (Verified 10/15/23 13:59) Unknown tree nut Allergy (Verified 10/15/23 13:59) Hives HPI Liliam follow up HPI Details Patient presents for AUD treatment follow up via teleheath Still in IOP Reports he has had no cravings since injection Has been experiencing some congestion --discussed with management liaison and prescribed nasal spray which he reports has been helpful Would like to address his marijuana use --daily use [facility] Medical History (Updated 09/03/23 @ 00:03 by Sofia Li) Alcohol use disorder PTSD (post-traumatic stress disorder) MDD (major depressive disorder), recurrent severe, without psychosis Social History Household Members: None Housing: Apartment Do you presently have visiting nurse or other home services: No Patient Tobacco Use Status: Current everyday Tobacco user e-Cigarette/Vaping Use: Currently Using Substance Use Type: Marijuana service: No Sexual orientation: Did not discuss Review of Systems Const Reports as per HPI Assessment & Plan Assessment & Plan (1) Alcohol use disorder: Code(s): F10.90 - Alcohol use, unspecified, uncomplicated Plan: follow up 2 weeks for next injeciton encouraged to call office with any questions will provide resources related to addressing canabis use Telehealth Telehealth Location of provider rendering services: practice address Location of patient: other Patient Identification confirmed using: Name, : Yes Telehealth method: voice only Patient verbally consented to treatment: Yes Patient verbally consented to billing insurance company: Yes Coding Level of Care Code Tele Est Pt Level 3 (75332) Diagnoses Alcohol use disorder F10.90 Time Spent (min) 25 Comment 15 mins with patient, remainder on chart review and documentation
== END 2023-10-28 10:20 | disposition home or self-care (01) ==
PROVIDERS: Visit Provider Nurse Practitioner Psychiatric/Mental Health
DX: F10.90 Alcohol use, unspecified, uncomplicated (principal)
CPT/HCPCS: 99213

== ENCOUNTER → 2023-10-28 09:49 | Outpatient (BNVA) | payer MEDICAID, SELFPAY | PROVIDERS: Visit Provider Nurse Practitioner Psychiatric/Mental Health ==

== ENCOUNTER 2023-11-12 11:01 | Outpatient (AMB) | payer MEDICAID, SELFPAY ==
--- NOTE | 2023-11-12 11:23 | AM.OFFVISNUR ---
Intake Intake Visit Reasons: Liliam Inj Allergies Sulfa (Sulfonamide Antibiotics) Allergy (Verified 10/15/23 13:59) Unknown tree nut Allergy (Verified 10/15/23 13:59) Hives Nursing Note Patient to Clinic today for vivitrol injection. A+O x4, speaking in clear/full sentences, was in good spirits, smiling and talkative. He endorsed drinking a glass of wine last night, states he did so because it was given to him as a congratulations for signing a lease on an apartment. He states he didnt get drunk, so the med worked and I dont want to drink again . He agrees to call if he feels like he wants to drink again, and will follow up in 4 weeks for his next injection. Office Meds Vivitrol 380 mg intramuscular suspension,extended release Performing Provider: Maranda Stokes CNP [place] [facility] [facility] Administered by: Opal Turcios RN on 11/12/23 11:25 Dose Route Admin Location Dispensed Lot Number Expiration Date [facility] Vat Washer 380 mg IM RG 380 mg 2023-3025T 11/12/23 33170-509-59 [employer] Comments: Patient tolerated injection well with no stated or noted side effects. Agrees to call [facility] with any comments or questions. Coding Assessment & Plan Assessment & Plan Orders: Orders AMB Naltrexone Injection Patient Supplied (NC) Today F10.90 - Alcohol use, unspecified, uncomplicated
== END 2023-11-12 11:24 | disposition home or self-care (01) ==
DX: F10.90 Alcohol use, unspecified, uncomplicated (principal)

== ENCOUNTER → 2023-11-12 11:01 | Outpatient (BNVA) | payer MEDICAID, SELFPAY | DX: F10.20 Alcohol dependence, uncomplicated (principal); Z79.899 Other long term (current) drug therapy | CPT/HCPCS: 96372; J2315 ==

== ENCOUNTER 2024-01-23 05:43 | Emergency (ER) | payer MEDICAID, SELFPAY ==
[2024-01-23 05:49] VITALS: BP 151/70; PULSE 94; RESP 17; TEMP 36.6; O2SAT 99
[2024-01-23 06:29] LABS: MANUAL DIFF FLAG NO
[2024-01-23 06:29] LABS: Amphetamine Screen Urine Not Detected (Not Detect); Barbiturates, Urine Not Detected (Not Detect); Benzodiazepines Screen Urine Not Detected (Not Detect); Buprenorphine Scr Not Detected (Not Detect); Cannabinoid Screen Urine POSITIVE (Not Detect); Cocaine Screen Urine Not Detected (Not Detect); Fentanyl, urine Not Detected (Not Detect); Methadone Screen, Urine Not Detected (Not Detect); Opiate Screen Urine Not Detected (Not Detect); Oxycodone Screen Urine Not Detected (Not Detect); Phencyclidine Screen Urine Not Detected (Not Detect)
[2024-01-23 06:40] LABS: Basophils Absolute Auto 0.1 X10*3/uL (0.0-0.2); Basophils Percent Auto 0.6 % (0-2); Eosinophils Absolute Auto 0.1 X10*3/uL (0.0-0.4); Hematocrit 47.2 % (42.0-52.0); Hemoglobin 15.8 g/dl (14.0-18.0); Imm Gran Abs Auto 0.05 X10*3/uL (0.00-0.03); Imm Gran Pct Auto 0.4 % (0.0-0.4); Lymphocytes Absolute Auto 4.9 X10*3/uL (1.2-4.9); Lymphocytes Percent Auto 42.2 % (20-40); Mean Corpuscular HGB Conc 33.5 g/dl (31.0-36.0); Mean Corpuscular Hemoglobin 28.9 pg (27.0-33.0); Mean Corpuscular Volume 86.4 fL (80.0-98.0); Mean Platelet Volume 9.3 fL (9.4-12.4); Monocytes Absolute Auto 1.1 X10*3/uL (0.1-1.2); Monocytes Percent Auto 9.6 % (2-11); Neutrophils Absolute Auto 5.4 x10*3/uL (2.0-8.3); Neutrophils Percent Auto 46.2 % (45-73); Platelet Count 348 X10*3/uL (160-400); Red Blood Count 5.46 X10*6/uL (4.60-5.80); Red Cell Distribution Width 12.4 % (11.0-16.0); White Blood Count 11.6 X10*3/uL (4.8-10.8)
[2024-01-23 06:46] LABS: Alanine Aminotransferase 35 U/L (0-40); Albumin Level 4.9 g/dL (3.5-5.0); Alkaline Phosphatase 51 U/L (39-117); Anion Gap 15 (12-20); Aspartate Amino Transferase 19 U/L (5-37); Bilirubin Total 0.1 mg/dL (0.0-1.0); Blood Urea Nitrogen 11 mg/dL (9-16); Calcium 9.5 mg/dL (8.4-10.2); Carbon Dioxide 30 mmol/L (22-29); Chloride 102 mmol/L (96-108); Creatinine Clr Calc Pharmacy 133.6; Estimated Glomerular Filt Rate > 60; Ethanol 138 mg/dL; Glucose Random 130 mg/dL (60-115); Potassium 3.8 mmol/L (3.3-5.1); Sodium 143 mmol/L (135-145)
--- NOTE | 2024-01-23 07:05 | PC.NURSE ---
Assumed care of patient at 0645. Patient is observed sitting quietly in his room. No signs of distress, breathing is even and unlabored. Will continue plan of care.
--- NOTE | 2024-01-23 07:11 | ED_ITS ---
HPI - Psych General Chief Complaint: Psychiatric Symptoms Stated Complaint: Behavioral Episode Time Seen by Provider: 01/23/24 06:27 Source: patient and EMS Mode of arrival: EMS Limitations: no limitations History of Present Illness HPI Narrative: 23-year-old male with a history of PTSD, depression, alcohol use disorder, Crohn's disease who presents to the ER for evaluation of depression and anxiety in the setting being mother's day today. His mother was murdered when he was 20 years old back in 2020. He had a nightmare last night that the same person that motor his mother was trying to murder him. He does endorse drinking vodka last night. He states he does not drink ?too often? and is supposed to be seeing Maranda Stokes for the injection to not drink. He has been noncompliant with his depression medications. He has been seeing his psychiatrist and is due to see a new therapist in 2 weeks. Denies any suicidal or homicidal thoughts. MD complaint: feels depressed, anxiety and alcohol abuse Onset (ago): day(s) Duration: changing over time History of same: Yes Relieving factors: medication and therapy Exacerbating factors: alcohol Context: recent alcohol abuse and significant life stressor Associated psychiatric symptoms: depression Associated symptoms: denies other symptoms Related Data Home Medications ?Medication ?Instructions ?Recorded ?Confirmed albuterol sulfate 90 mcg/actuation 2 puff inhalation Q6H PRN wheezing 01/23/24 01/23/24 aerosol inhaler (Ventolin HFA) fluticasone propionate 50 2 spray intranasal DAILY 01/23/24 01/23/24 mcg/actuation nasal spray,suspension Previous Rx's ?Medication ?Instructions ?Recorded nicotine (polacrilex) 4 mg gum 4 mg buccal Q2H PRN nicotine 08/25/23 cravings 30 days #100 ea naltrexone microspheres 380 mg 380 mg IM Q4W #1 ea 10/01/23 intramuscular suspension,extended release (Vivitrol) Allergies Allergy/AdvReac Type Severity Reaction Status Date / Time Sulfa (Sulfonamide Allergy Rash Verified 01/23/24 06:04 Antibiotics) tree nut Allergy Hives Verified 10/15/23 13:59 Review of Systems 2 Review of Systems: Yes all other systems are reviewed and are negative PMFSH Past Medical History Medical History (Updated 01/23/24 @ 13:07 by CHRISTOPH Hernandez) Alcohol use disorder PTSD (post-traumatic stress disorder) MDD (major depressive disorder), recurrent severe, without psychosis Social History Social History Household Members: None Housing: Apartment Do you presently have visiting nurse or other home services: No Patient Tobacco Use Status: Current everyday Tobacco user e-Cigarette/Vaping Use: Currently Using Substance Use Type: Marijuana Advance Directives: No Advance Directives Information Provided: No Do you have a plan to hurt others: No Plan service: No Sexual orientation: Did not discuss Physical Exam 2 Vital Signs: Vital Signs: Last Vital Signs Temp 98 F 01/23/24 05:49 Pulse 94 01/23/24 05:49 Resp 17 01/23/24 05:49 BP 151/70 H 01/23/24 05:49 Pulse Ox 99 01/23/24 05:49 O2 Del Method Room Air 01/23/24 05:49 BMI result Body Mass Index 30.0 Appearance: Alert. Oriented X3. No acute distress. Head: normocephalic, atraumatic. Eyes: Pupils equal, round and reactive to light. ENT: Pharynx normal. No tonsillar swelling or exudate. Neck: Normal inspection. Neck supple. CVS: Normal heart rate and rhythm. Pulses normal. Respiratory: No respiratory distress. Breath sounds normal. Abdomen: Soft and nontender. +BS x4 Skin: Skin warm and dry. Normal skin color. Normal skin turgor. No rashes. Extremities: No lower extremity edema. No joint swelling. Neuro/psych: Oriented X 3. No motor deficit. No sensory deficit. CN II-XII intact. Normal speech and cognition. Mood is ok well spoken Course Reevaluation(s) Reevaluation #1: see by CARE team - patient would like to stay the night and be discharged tomorrow. Does not feel comfortable being around his family during mother states has abrasions and does not know how to regulate his emotions during this day. Will continue physician observation and re-evaluate in the morning, anticipate discharge tomorrow. Time: 13:06 Medications Administered Generic Name Dose Route Start Last Admin Trade Name Freq PRN Reason Stop Dose Admin Nicotine Polacrilex 2 mg 01/23/24 13:13 01/23/24 13:31 Nicotine Polacrilex 2 Mg Gum BUCCAL 2 mg Q2H PRN Administration nicotine cravings Discontinued Medications Generic Name Dose Route Start Last Admin Trade Name Solo PRN Reason Stop Dose Admin Acetaminophen 975 mg 01/23/24 12:20 01/23/24 12:57 Acetaminophen 325 Mg Tablet PO 01/23/24 12:21 975 mg ONCE ONE Administration Ondansetron HCl 4 mg 01/23/24 07:13 01/23/24 07:33 Ondansetron Odt 4 Mg Tab.Rapdis TRANSLINGU 01/23/24 07:14 4 mg ONCE ONE Administration Medical Decision Making Medical Decision Making [facility] Narrative: 23-year-old male with a history of PTSD, depression, alcohol use disorder and Crohn's disease presents to the ER for evaluation of depression anxiety, alcohol use in the setting of mother's Day trigger. Patient was hospitalized here in August after an 0 you eye. He reports it helped him significantly. He does not feel he is at the point where he needs to be hospitalized again. He has not suicidal or homicidal. Lab workup showing an alcohol level of 138 at 06:22. U tox is only positive for marijuana. Metabolic workup is unremarkable. Patient is medically cleared and is awaiting care team evaluation. Physician observation started at 0745. Patient placed in physician observation because patient is awaiting CARE team evaluation for the possible need of inpatient psych admission. At the time observation was started patient's vital signs were stable. Patient is alert and oriented. Neuro exam is non-focal. CV: RRR and lungs are clear. Will continue to monitor. Differential Diagnosis Differential Diagnoses: The differential diagnosis associated with the presentation includes substance induced mood disorder, acute psychosis, schizophrenia, schizoaffective disorder, PTSD, bipolar disorder, major depression with psychotic features Admission/Observation Consideration of admission/observation: Escalation of care including admission/observation considered Consult Healthcare Provider Management of the patient was discussed with: Behavioral Health Provider Care team recommending voluntary observation until tomorrow, 01/23 Lab Data [facility] Lab Attestation statement: I reviewed the patient's lab results. mild leukocytosis 01/23/24 06:22 01/23/24 06:22 Labs: Lab Results 01/23/24 01/23/24 Range/Units 06:07 06:22 WBC 11.6 H (4.8-10.8) X10*3/uL RBC 5.46 (4.60-5.80) X10*6/uL Hgb 15.8 (14.0-18.0) g/dl Hct 47.2 (42.0-52.0) % MCV 86.4 (80.0-98.0) fL MCH 28.9 (27.0-33.0) pg MCHC 33.5 (31.0-36.0) g/dl RDW 12.4 (11.0-16.0) % Plt Count 348 (160-400) X10*3/uL MPV 9.3 L (9.4-12.4) fL Immature Gran % (Auto) 0.4 (0.0-0.4) % Neut % (Auto) 46.2 (45-73) % Lymph % (Auto) 42.2 H (20-40) % [place] % (Auto) 9.6 (2-11) % Eos % (Auto) 1.0 (0-4) % Baso % (Auto) 0.6 (0-2) % Lymph # (Auto) 4.9 (1.2-4.9) X10*3/uL [place] # (Auto) 1.1 (0.1-1.2) X10*3/uL Eos # (Auto) 0.1 (0.0-0.4) X10*3/uL Baso # (Auto) 0.1 (0.0-0.2) X10*3/uL Abs Immat Gran (auto) 0.05 H (0.00-0.03) X10*3/uL Absolute Neuts (auto) 5.4 (2.0-8.3) x10*3/uL Absolute Nucleated RBC 0.000 (0.0-0.012) X10*3/uL Nucleated RBC % (auto) 0.0 (0.0-0.2) /100WBC Sodium 143 (135-145) mmol/L Potassium 3.8 (3.3-5.1) mmol/L Chloride 102 (96-108) mmol/L Carbon Dioxide 30 H (22-29) mmol/L Anion Gap 15 (12-20) BUN 11 (9-16) mg/dL Creatinine 0.86 (0.5-1.4) mg/dL Estim Creat Clear Calc 133.6 Estimated GFR > 60 Random Glucose 130 H (60-115) mg/dL Calcium 9.5 (8.4-10.2) mg/dL Total Bilirubin 0.1 (0.0-1.0) mg/dL AST 19 (5-37) U/L ALT 35 (0-40) U/L Alkaline Phosphatase 51 (39-117) U/L Total Protein 8.0 (6.5-8.0) g/dL Albumin 4.9 (3.5-5.0) g/dL Urine Opiates Screen Not Detected (Not Detect) Ur Buprenorphine Scrn Not Detected (Not Detect) ng/mL Ur Oxycodone Screen Not Detected (Not Detect) ng/mL Urine Methadone Screen Not Detected (Not Detect) ng/mL Urine Fentanyl Screen Not Detected (Not Detect) Ur Barbiturates Screen Not Detected (Not Detect) Ur Phencyclidine Scrn Not Detected (Not Detect) Ur Amphetamines Screen Not Detected (Not Detect) U Benzodiazepines Scrn Not Detected (Not Detect) Urine Cocaine Screen Not Detected (Not Detect) U Marijuana (THC) Screen POSITIVE H (Not Detect) Ethyl Alcohol 138 mg/dL Independent Historian Clinical information obtained from an independent historian. History obtained from or confirmed by: EMS External Record Review External record reviewed: Outpatient record and Prior outpatient labs Prescription Management I considered prescription management with: Other (antipsychotic) Chronic Conditions Patient?s care impacted by: Other (depression, PTSD) Social Determinants Patient?s care significantly limited by Social Determinants of Health including: Problems related to primary support group Critical Care Time Critical Care Time Critical Care Time: No Discharge Plan Discharge Clinical Impression: MDD (major depressive disorder), recurrent severe, without psychosis, PTSD (post-traumatic stress disorder) Patient Disposition: Still a Patient Prescriptions: No Action albuterol sulfate [Ventolin HFA] 90 mcg/actuation HFA aerosol inhaler 2 puff INHALATION Q6H PRN (Reason: wheezing) fluticasone propionate 50 mcg/actuation spray,suspension 2 spray intranasal DAILY nicotine (polacrilex) 4 mg gum 4 mg buccal Q2H PRN (Reason: nicotine cravings) 30 Days Qty: 100 0RF Vivitrol 380 mg suspension,extended rel recon 380 mg IM Q4W Qty: 1 5RF Interventions: [place]-Suicide Risk Severity Scale Last Done: 01/23/24 06:04 Print Language: [place] Citizen
[2024-01-23] MEDS: Ondansetron ODT 4 MG TAB.RAPDIS TRANSLINGU (07:33)
--- NOTE | 2024-01-23 12:08 | MHC.RECOVRN ---
Met with pt in the ED Pod, after refferal from Care Team due to pt being in our outpt care. Pt had presented to the ED from home with depression and ETOH. Upon evaluation, pt admitted drinking more than usual, and just being sad his mother three years ago and he acknowledges Mothers Day being difficult. Pt sitting up in bed, rubbing his arm that has a tattoo with his mothers signature on it, with tears in his eyes. Pt reports heroin/fentanyl use, 5 bags daily, INH, x 4 years, last use [employer]. Pt also reports cocaine, INH, $30 daily, last use [employer]. Discussed with Maranda Stokes APRN.??
--- NOTE | 2024-01-23 12:16 | MHC.RECOVRN ---
Met with pt in the ED Pod, after referral from Care Team due to pt being in our outpt care. Pt had presented to the ED from home with depression and ETOH. Upon evaluation, pt admitted drinking more than usual, and just being sad his mother three years ago and he acknowledges Mothers Day being difficult. Pt sitting up in bed, rubbing his arm that has a tattoo with his mothers signature on it, with tears in his eyes. Pt agreed to stay the night with Care Team, he also agreed to come at discharge tomorrow to our [facility] clinic to meet with me and talk about next steps in recovery. Discussed with Maranda Stokes APRN
[2024-01-23] MEDS: Acetaminophen 325 MG TABLET 975 MG PO (12:57)
[2024-01-23] MEDS: Nicotine Polacrilex 2 MG GUM BUCCAL (13:31)
[2024-01-23] MEDS: Nicotine Polacrilex 2 MG GUM 4 MG BUCCAL ×2 (16:37→20:13)
[2024-01-23] MEDS: Magnesium Hydrox/Alum Hydrox 30 ML ORAL.SUSP PO (17:57)
[2024-01-23 19:14] VITALS: BP 134/78; PULSE 77; RESP 18; TEMP 36.4
--- NOTE | 2024-01-24 07:11 | PC.NURSE ---
Assumed care of patient at 0645. Patient is observed resting quietly in their bed. No signs of distress observed. Breathing is even and unlabored. Will continue plan of care.
--- NOTE | 2024-01-24 08:46 | MHC.CARE ---
Family called and reported they will come pick patient up when he is discharged. Family can be reached at [phone] or [phone].
[2024-01-24 09:49] VITALS: BP 114/75; PULSE 66; RESP 18; TEMP 36.3; O2SAT 97
[2024-01-24 10:03] LABS: COVID-19 Test Negative (Negative); IDNOW Serial# 08D9AD1C
[2024-01-24 10:18] VITALS: BP 114/75; PULSE 66; RESP 18; TEMP 36.3; O2SAT 97
== END 2024-01-24 10:29 | disposition home or self-care (01) ==
PROVIDERS: Emergency Medicine; Emergency Provider Student in an Organized Health Care Education/Training Program; PCP Family Medicine
DX: F33.2 Major depressive disorder, recurrent severe without psychotic features (principal); F43.10 Post-traumatic stress disorder, unspecified; F41.8 Other specified anxiety disorders; K50.90 Crohn's disease, unspecified, without complications; Z79.899 Other long term (current) drug therapy; Z63.4 Disappearance and death of family member
CPT/HCPCS: 36415; 80053; 80307; 85025; 87635; 99285; S9485

== ENCOUNTER 2024-01-24 10:52 | Outpatient (AMB) | payer MEDICAID, SELFPAY ==
--- NOTE | 2024-01-24 10:46 | AM.OFFVISNUR ---
Intake Vital Signs 01/24/24 10:48 BP 142/94 H Blood Pressure Location Lt brachial Position Sitting Pulse 53 Pulse Source Pulse Oximeter Pulse Oximetry (%) 98 Oxygen Delivery Method Room Air Intake Visit Reasons: Liliam Inj Allergies Sulfa (Sulfonamide Antibiotics) Allergy (Verified 01/23/24 06:04) Rash tree nut Allergy (Verified 10/15/23 13:59) Hives Coding Assessment & Plan Assessment & Plan Orders: Orders AMB Naltrexone Injection Patient Supplied (NC) Today F10.90 - Alcohol use, unspecified, uncomplicated Medications: New Vivitrol ER (naltrexone microspheres) 380 mg IM ONCE 1 ea 0RF NS F10.90 - Alcohol use, unspecified, uncomplicated
[2024-01-24 10:48] VITALS: BP 142/94; PULSE 53; O2SAT 98
--- NOTE | 2024-01-24 11:01 | A.OFFVISCC_ITS ---
Vital Signs 01/24/24 10:48 BP 142/94 H Blood Pressure Location Lt brachial Position Sitting Pulse 53 Pulse Source Pulse Oximeter Pulse Oximetry (%) 98 Oxygen Delivery Method Room Air Intake Visit Reasons: Liliam Inj Allergies Sulfa (Sulfonamide Antibiotics) Allergy (Verified 01/23/24 06:04) Rash tree nut Allergy (Verified 10/15/23 13:59) [facility]ives [facility] Medical History (Updated 01/23/24 @ 13:07 by CHRISTOPH Hernandez) Alcohol use disorder PTSD (post-traumatic stress disorder) MDD (major depressive disorder), recurrent severe, without psychosis Social History Household Members: None Housing: Apartment Do you presently have visiting nurse or other home services: No Alcohol intake: current Alcohol intake frequency: a few times a month Patient Tobacco Use Status: Current everyday Tobacco user e-Cigarette/Vaping Use: Currently Using Substance Use Type: Marijuana service: No Sexual orientation: Did not discuss Physical Exam Vital Signs: Last Vital Signs Pulse 53 01/24/24 10:48 BP 142/94 H 01/24/24 10:48 Pulse Ox 98 01/24/24 10:48 Oxygen Delivery Method Room Air 01/24/24 10:48 Office Meds Vivitrol 380 mg intramuscular suspension,extended release Performing Provider: Maranda Stokes CNP Performing Location: [facility] Administered by: Opal Turcios RN on 01/24/24 11:23 Dose Route Admin Location Dispensed Lot Number Expiration Date [facility] Soil Surveyor 380 mg IM RG 380 mg 2023-1031T 02/10/26 34904-980-55 [employer] Comments: Patient tolerated well with no signs or symptoms of reaction or complications. Pt agrees to call [facility] with any questions or concerns. Assessment & Plan Assessment & Plan (1) Alcohol use disorder: Code(s): F10.90 - Alcohol use, unspecified, uncomplicated Category: Medical Plan: tolerated injection Orders: Orders AMB Naltrexone Injection Patient Supplied (NC) 01/24/24 F10.90 - Alcohol use, unspecified, uncomplicated
== END 2024-01-24 11:50 | disposition home or self-care (01) ==
PROVIDERS: PCP Family Medicine
DX: F10.90 Alcohol use, unspecified, uncomplicated (principal)

== ENCOUNTER → 2024-01-24 10:52 | Outpatient (BNVA) | payer MEDICAID, SELFPAY | PROVIDERS: PCP Family Medicine | DX: F10.20 Alcohol dependence, uncomplicated (principal); Z79.899 Other long term (current) drug therapy | CPT/HCPCS: 96372; 99212; J2315 ==

== ENCOUNTER 2024-01-24 11:22 | Outpatient (AMB) | payer MEDICAID, SELFPAY ==
--- NOTE | 2024-01-24 21:47 | MHC.AM.SUB ---
Intake Visit Reasons: MAT Visit Allergies Sulfa (Sulfonamide Antibiotics) Allergy (Verified 01/23/24 06:04) Rash tree nut Allergy (Verified 10/15/23 13:59) Hives HPI HPI MAT Visit: Details: Patient presents as a walk in from area of ED. Reports he has been binge drinking--discussed how medicaiton is effective as a tool to reduce alcohol intake, but will not prevent it Discussed strategies to address increase in cravings Day is a very challenging time for him [facility] Medical History (Updated 01/23/24 @ 13:07 by CHRISTOPH Hernandez) Alcohol use disorder PTSD (post-traumatic stress disorder) MDD (major depressive disorder), recurrent severe, without psychosis Social History Household Members: None Housing: Apartment Do you presently have visiting nurse or other home services: No Alcohol intake: current Alcohol intake frequency: a few times a month Patient Tobacco Use Status: Current everyday Tobacco user e-Cigarette/Vaping Use: Currently Using Substance Use Type: Marijuana service: No Sexual orientation: Did not discuss Review of Systems Const Reports as per HPI Physical Exam Const General: cooperative, healthy appearing and no acute distress Assessment & Plan Assessment & Plan (1) Alcohol use disorder: Code(s): F10.90 - Alcohol use, unspecified, uncomplicated Category: Medical Plan: tolerated injection follow up 2 weeks relapse prevention discussion
== END 2024-01-24 11:50 | disposition home or self-care (01) ==
PROVIDERS: PCP Family Medicine; Visit Provider Nurse Practitioner Psychiatric/Mental Health
DX: F10.90 Alcohol use, unspecified, uncomplicated (principal)
CPT/HCPCS: 99214

== ENCOUNTER 2025-02-09 15:03 | Outpatient (AMB) | payer MEDICAID, SELFPAY ==
--- NOTE | 2025-02-09 15:31 | A.OFFVISCC_ITS ---
Vital Signs 02/09/25 15:43 BP 110/72 Blood Pressure Location Rt brachial Position Sitting Pulse 92 Pulse Source Pulse Oximeter Pulse Oximetry (%) 96 Oxygen Delivery Method Room Air Intake Visit Reasons: MAT Intake Note: Patient presents for MAT Allergies Sulfa (Sulfonamide Antibiotics) Allergy (Verified 02/09/25 15:42) Rash tree nut Allergy (Verified 02/09/25 15:42) Hives HPI Comments Details: He has been taking Vivitrol as needed. He has no complaints. Review of Systems Const All systems reviewed & are unremarkable except as noted in HPI and below Physical Exam Vital Signs: Last Vital Signs Pulse 92 02/09/25 15:43 BP 110/72 02/09/25 15:43 Pulse Ox 96 02/09/25 15:43 Oxygen Delivery Method Room Air 02/09/25 15:43 Const General: cooperative [facility] Medical History Alcohol use disorder PTSD (post-traumatic stress disorder) MDD (major depressive disorder), recurrent severe, without psychosis Social History Household Members: None Housing: Apartment Do you presently have visiting nurse or other home services: No Alcohol intake: current Alcohol intake frequency: a few times a month Patient Tobacco Use Status: Current everyday Tobacco user e-Cigarette/Vaping Use: Currently Using Substance Use Type: Marijuana service: No Sexual orientation: Did not discuss Social History: Patient removed from mother's custody when he was around 13 years old, raised by maternal grandparents Patient's mother was murdered when he was 20 years old, case is still currently on going Substance History: Alcohol abuse, at least 5 drinks a day most days of the week Trauma History: Chaotic upbringing as a child; other traumas refer to but not disclosed Assessment & Plan Assessment & Plan (1) Alcohol use disorder: Comment: He is drinking less Code(s): F10.90 - Alcohol use, unspecified, uncomplicated Category: Medical Plan: Continue Vivitrol prn need.
[2025-02-09 15:43] VITALS: BP 110/72; PULSE 92; O2SAT 96
== END 2025-02-09 15:57 | disposition home or self-care (01) ==
LOC: HO.HCC 15:04
PROVIDERS: PCP Family Medicine; Visit Provider Internal Medicine
DX: F10.90 Alcohol use, unspecified, uncomplicated (principal)
CPT/HCPCS: 99213

== ENCOUNTER → 2025-02-09 15:03 | Outpatient (BNVA) | payer MEDICAID, SELFPAY | PROVIDERS: PCP Family Medicine; Visit Provider Internal Medicine | DX: F10.10 Alcohol abuse, uncomplicated (principal); Z79.899 Other long term (current) drug therapy | CPT/HCPCS: 99212 ==

== ENCOUNTER 2025-03-27 19:18 | Emergency (ER) | payer MEDICAID, SELFPAY ==
[2025-03-27 19:22] VITALS: BP 146/62; PULSE 65; RESP 15; TEMP 36.9; O2SAT 99; BMI 43.9
[2025-03-27 19:40] LABS: Hematocrit 43.5 % (42.0-52.0); Hemoglobin 14.7 g/dl (14.0-18.0); Imm Gran Abs Auto 0.03 X10*3/uL (0.00-0.03); Imm Gran Pct Auto 0.3 % (0.0-0.4); Lymphocytes Absolute Auto 5.3 X10*3/uL (1.2-4.9); MANUAL DIFF FLAG SCAN; Mean Corpuscular HGB Conc 33.8 g/dl (31.0-36.0); Mean Corpuscular Hemoglobin 27.6 pg (27.0-33.0); Mean Corpuscular Volume 81.6 fL (80.0-98.0); NRBC Abs Auto 0.000 X10*3/uL (0.0-0.012); NRBC Pct Auto 0.0 /100WBC (0.0-0.2); Platelet Count 294 X10*3/uL (160-400); Red Blood Count 5.33 X10*6/uL (4.60-5.80); SCAN SMEAR FLAG 1; White Blood Count 11.2 X10*3/uL (4.8-10.8)
--- NOTE | 2025-03-27 19:53 | ED.ABDPAIN ---
HPI - Abdominal Pain General Chief Complaint: Abdominal Pain Stated Complaint: Crohns-flare up Related Data Home Medications ?Medication ?Instructions ?Recorded ?Confirmed albuterol sulfate 90 mcg/actuation 2 puff inhalation Q6H PRN wheezing 01/23/24 01/23/24 aerosol inhaler (Ventolin HFA) fluticasone propionate 50 2 spray intranasal DAILY 01/23/24 01/23/24 mcg/actuation nasal spray,suspension cariprazine 3 mg capsule (Vraylar) 3 mg PO DAILY 02/09/25 gabapentin 300 mg capsule 300 mg PO DAILY 02/09/25 hydroxyzine pamoate 50 mg capsule 50 mg PO QID PRN anxiety 02/09/25 lithium carbonate 300 mg capsule 300 mg PO BEDTIME 02/09/25 lorazepam 1 mg tablet 1 mg PO BEDTIME PRN 02/09/25 oxcarbazepine 300 mg tablet 300 mg PO BID 02/09/25 prazosin 5 mg capsule 5 mg PO BEDTIME 02/09/25 Previous Rx's ?Medication ?Instructions ?Recorded nicotine (polacrilex) 4 mg gum 4 mg buccal Q2H PRN nicotine 08/25/23 cravings 30 days #100 ea naltrexone microspheres 380 mg 380 mg IM Q4W #1 ea 10/01/23 intramuscular suspension,extended release (Vivitrol) Allergies Allergy/AdvReac Type Severity Reaction Status Date / Time Sulfa (Sulfonamide Allergy Rash Verified 03/27/25 19:24 Antibiotics) tree nut Allergy Hives Verified 03/27/25 19:24 PMFSH Past Medical History Medical History Alcohol use disorder PTSD (post-traumatic stress disorder) MDD (major depressive disorder), recurrent severe, without psychosis Social History Social History Household Members: None Housing: Apartment Do you presently have visiting nurse or other home services: No Alcohol intake: current Alcohol intake frequency: a few times a month Patient Tobacco Use Status: Current everyday Tobacco user e-Cigarette/Vaping Use: Currently Using Substance Use Type: Marijuana Advance Directives: No Advance Directives Information Provided: No Do you have a plan to hurt others: No Plan service: No Sexual orientation: Did not discuss Physical Exam ED Vital Signs: Vital Signs - 24 hr 03/27/25 19:22 Temperature 98.5 F Pulse Rate 65 Respiratory Rate 15 Blood Pressure 146/62 H Pulse Oximetry 99 Oxygen Delivery Method Room Air BMI result Body Mass Index 43.9 Course Course Course Narrative: 03/27/251952 CHRISTOPH Chau This is a Rapid Medical Examination (RME) performed by Teja Regan PA-C in triage. Full HPI, ROS, assessment and treatment plan per primary provider in the Main ED. Hx: 25 yo M here for eval of abd pain, nausea, diarrhea with blood, myalgias. History of Crohn's disease, has missed his last few infusions for this as he no longer has a PCP. You believes he is having a flare-up. Plan: Labs Medical Decision Making Lab Data 03/27/25 19:33 03/27/25 19:33 Labs: Lab Results 03/27/25 Range/Units 19:33 WBC 11.2 H (4.8-10.8) X10*3/uL RBC 5.33 (4.60-5.80) X10*6/uL Hgb 14.7 (14.0-18.0) g/dl Hct 43.5 (42.0-52.0) % MCV 81.6 (80.0-98.0) fL MCH 27.6 (27.0-33.0) pg MCHC 33.8 (31.0-36.0) g/dl RDW 12.5 (11.0-16.0) % Plt Count 294 (160-400) X10*3/uL MPV 9.2 L (9.4-12.4) fL Immature Gran % (Auto) 0.3 (0.0-0.4) % Neut % (Auto) 41.5 L (45-73) % Lymph % (Auto) 47.3 H (20-40) % [place] % (Auto) 9.1 (2-11) % Eos % (Auto) 1.4 (0-4) % Baso % (Auto) 0.4 (0-2) % Lymph # (Auto) 5.3 H (1.2-4.9) X10*3/uL [place] # (Auto) 1.0 (0.1-1.2) X10*3/uL Eos # (Auto) 0.2 (0.0-0.4) X10*3/uL Baso # (Auto) 0.1 (0.0-0.2) X10*3/uL Abs Immat Gran (auto) 0.03 (0.00-0.03) X10*3/uL Absolute Neuts (auto) 4.6 (2.0-8.3) x10*3/uL Absolute Nucleated RBC 0.000 (0.0-0.012) X10*3/uL Nucleated RBC % (auto) 0.0 (0.0-0.2) /100WBC Smear Tech's Comments VERIFIED Sodium 143 (135-145) mmol/L Potassium 4.3 (3.3-5.1) mmol/L Chloride 107 (96-108) mmol/L Carbon Dioxide 28 (22-29) mmol/L Anion Gap 12 (12-20) BUN 10 (9-16) mg/dL Creatinine 0.94 (0.5-1.4) mg/dL Estim Creat Clear Calc 146.4 Estimated GFR > 60 Random Glucose 99 (60-115) mg/dL Calcium 9.1 (8.4-10.2) mg/dL Magnesium 2.0 (1.6-2.6) mg/dL Total Bilirubin 0.2 (0.0-1.0) mg/dL AST 28 (5-37) U/L ALT 62 H (0-40) U/L Alkaline Phosphatase 39 (39-117) U/L Total Protein 6.5 (6.5-8.0) g/dL Albumin 4.6 (3.5-5.0) g/dL Lipase 26 (8-78) U/L Discharge Plan Discharge Clinical Impression: Abdominal pain Patient Disposition: Left W/O Completing Treatment Prescriptions: No Action albuterol sulfate [Ventolin HFA] 90 mcg/actuation HFA aerosol inhaler 2 puff INHALATION Q6H PRN (Reason: wheezing) fluticasone propionate 50 mcg/actuation spray,suspension 2 spray intranasal DAILY nicotine (polacrilex) 4 mg gum 4 mg buccal Q2H PRN (Reason: nicotine cravings) 30 Days Qty: 100 0RF Vivitrol 380 mg suspension,extended rel recon 380 mg IM Q4W Qty: 1 5RF oxcarbazepine 300 mg tablet 300 mg PO BID hydroxyzine pamoate 50 mg capsule 50 mg PO QID PRN (Reason: anxiety) gabapentin 300 mg capsule 300 mg PO DAILY prazosin 5 mg capsule 5 mg PO BEDTIME lorazepam 1 mg tablet 1 mg PO BEDTIME PRN Vraylar 3 mg capsule 3 mg PO DAILY lithium carbonate 300 mg capsule 300 mg PO BEDTIME Discharge Date/Time: 03/27/25 22:46
[2025-03-27 19:56] LABS: Alanine Aminotransferase 62 U/L (0-40); Albumin Level 4.6 g/dL (3.5-5.0); Alkaline Phosphatase 39 U/L (39-117); Anion Gap 12 (12-20); Aspartate Amino Transferase 28 U/L (5-37); Blood Urea Nitrogen 10 mg/dL (9-16); Calcium 9.1 mg/dL (8.4-10.2); Carbon Dioxide 28 mmol/L (22-29); Chloride 107 mmol/L (96-108); Creatinine Clr Calc Pharmacy 146.4; Estimated Glomerular Filt Rate > 60; Lipase 26 U/L (8-78); Magnesium 2.0 mg/dL (1.6-2.6); Potassium 4.3 mmol/L (3.3-5.1); Sodium 143 mmol/L (135-145); Total Protein 6.5 g/dL (6.5-8.0)
== END 2025-03-27 22:46 | disposition left against medical advice (07) ==
PROVIDERS: Emergency Provider Emergency Medicine
DX: R10.9 Unspecified abdominal pain (principal); K50.90 Crohn's disease, unspecified, without complications
CPT/HCPCS: 36415; 80053; 83690; 83735; 85025; 99281; 99283